=== PATIENT | female | born 1945 | race Caucasian/White ===

== ENCOUNTER 2020-01-23 14:53 | Outpatient (REF) | payer MEDICARE, SELFPAY ==
--- NOTE | 2020-01-23 14:58 | MM_ITS ---
EXAMINATION: MM SCREENING DIGITAL BREAST TOMOSYNTHESIS, BILATERAL CLINICAL INFORMATION: Screening. Asymptomatic. Family history of breast cancer (sister diagnosed at age 40). The lifetime risk of breast cancer based on the Tyrer-Cuzick Model is 5.7 %. COMPARISON: Mammography: 05/13/2018 and multiple previous mammograms dated back to 06/13/2013 TECHNIQUE: Digital breast tomosynthesis is performed in both the craniocaudal and mediolateral oblique views along with computer-aided detection (CAD). Synthesized 2D images are generated from the tomosynthesis. FINDINGS: There are scattered areas of fibroglandular density (ACR BI-RADS breast composition Category b). There are no significant masses, abnormal calcifications, or other abnormalities. No significant interval change is noted compared to last study. MM/MM tomosynthesis screening BI IMPRESSION: No mammographic evidence of malignancy. ASSESSMENT: BI-RADS 1: Negative RECOMMENDATION: Routine annual mammography screening. This patient's information was entered into a reminder system with a target due date for their next mammogram.
== END 2020-01-23 14:54 | disposition home or self-care (01) ==
LOC: HO.MAMMO 14:53
PROVIDERS: PCP Internal Medicine; Visit Provider Internal Medicine
DX: Z12.31 Encounter for screening mammogram for malignant neoplasm of breast (principal)
CPT/HCPCS: 77063; 77067

== ENCOUNTER 2020-06-08 10:27 | Outpatient (REF) | payer MEDICARE, SELFPAY ==
[2020-06-08 13:39] LABS: MANUAL DIFF FLAG NO
[2020-06-08 13:41] LABS: Basophils Percent Auto 0.6 % (0-2); Eosinophils Absolute Auto 0.1 X10*3/uL (0.0-0.4); Eosinophils Percent Auto 1.9 % (0-4); Hemoglobin 12.2 g/dl (12.0-16.0); Imm Gran Abs Auto 0.02 X10*3/uL (0.00-0.03); Imm Gran Pct Auto 0.3 % (0.0-0.4); Lymphocytes Absolute Auto 1.1 X10*3/uL (1.2-4.9); Lymphocytes Percent Auto 16.3 % (20-40); Mean Corpuscular HGB Conc 31.3 g/dl (31.0-35.0); Mean Corpuscular Hemoglobin 27.1 pg (27.0-33.0); Mean Corpuscular Volume 86.5 fL (80-98); Mean Platelet Volume 11.3 fL (9.4-12.3); Monocytes Absolute Auto 0.4 X10*3/uL (0.1-1.2); Neutrophils Absolute Auto 5.1 X10*3/uL (2.0-8.3); Neutrophils Percent Auto 74.9 % (45-73); Platelet Count 206 X10*3/uL (160-400); Red Blood Count 4.51 X10*6/uL (4.20-5.50); Red Cell Distribution Width 13.1 % (11.0-16.0); White Blood Count 6.8 X10*3/uL (4.8-10.8)
[2020-06-08 13:50] LABS: Estimated Average Glucose 123 mg/dL; Hemoglobin A1c % 5.9 %
[2020-06-08 14:08] LABS: Glucose Urine UA NEG (NEG); Leukocyte Esterase Urine NEG (NEG); Nitrite Urine NEG (NEG); Urine Blood TRACE (NEG); Urine Ketones NEG (NEG); Urine Protein NEG (NEG-TRACE)
[2020-06-08 14:17] LABS: Alanine Aminotransferase 17 U/L (0-31); Albumin Level 4.2 g/dL (3.5-5.0); Alkaline Phosphatase 85 U/L (39-117); Anion Gap 14 (12-20); Appearance Urine HAZY; Aspartate Amino Transferase 15 U/L (5-31); Bilirubin Total 0.6 mg/dL (0.0-1.0); Blood Urea Nitrogen 19 mg/dL (9-16); Calcium 8.8 mg/dL (8.4-10.2); Carbon Dioxide 30 mmol/L (22-29); Chloride 103 mmol/L (96-108); Cholesterol 168 mg/dL; Color Urine YELLOW; Estimated Glomerular Filt Rate > 60; Glucose Random 93 mg/dL (60-115); HDL Cholesterol 46 mg/dL; LDL Cholesterol Calculated 90 mg/dl; Potassium 4.7 mmol/L (3.3-5.1); Sodium 142 mmol/L (135-145); Total Protein 6.9 g/dL (6.5-8.0); Triglycerides 161 mg/dL
[2020-06-08 14:40] LABS: Free T4 (Free Thyroxine) 0.86 ng/dL (0.71-1.85); Thyroid Stimulating Hormone 3.24 uIU/mL (0.32-4.0); Vitamin D 25-OH Total 24.7 ng/mL (>30)
[2020-06-08 14:42] LABS: Bacteria Urine TRACE /LPF; Squamous Epithelial Cell Urine 3+ /LPF; WBC Urine 0-2 /HPF (0-4)
[2020-06-08 14:48] LABS: Folate 8.1 ng/mL (> or = 4.0); Vitamin B12 821 pg/mL (200-900)
== END 2020-06-08 10:28 | disposition home or self-care (01) ==
LOC: HO.10HDL 10:27
PROVIDERS: Visit Provider Internal Medicine
DX: E66.9 Obesity, unspecified (principal); E78.00 Pure hypercholesterolemia, unspecified; R61 Generalized hyperhidrosis
CPT/HCPCS: 36415; 80053; 80061; 81001; 82306; 82607; 82746; 83036; 84439; 84443; 85025

== ENCOUNTER 2021-09-12 14:23 | Outpatient (REF) | payer MEDICARE, SELFPAY ==
--- NOTE | ~2021-09-12 | MM_ITS ---
EXAMINATION: MM SCREENING DIGITAL BREAST TOMOSYNTHESIS, BILATERAL CLINICAL INFORMATION: Screening. Asymptomatic. The lifetime risk of breast cancer based on the Tyrer-Cuzick Model is 6%. COMPARISON: Mammography: January 23, 2020 and studies dating back to May 28, 2010 TECHNIQUE: Digital breast tomosynthesis is performed in both the craniocaudal and mediolateral oblique views along with computer-aided detection (CAD). Synthesized 2D images are generated from the tomosynthesis. FINDINGS: There are scattered areas of fibroglandular density (ACR BI-RADS breast composition Category b). There are no significant masses, abnormal calcifications, or other abnormalities. MM/MM tomosynthesis screening BI IMPRESSION: There are no significant changes from prior study. ASSESSMENT: BI-RADS 1: Negative RECOMMENDATION: Routine annual mammography screening. This patient's information was entered into a reminder system with a target due date for their next mammogram.
== END 2021-09-12 14:24 | disposition home or self-care (01) ==
LOC: HO.MAMMO 14:23
PROVIDERS: PCP Internal Medicine; Visit Provider Internal Medicine
DX: Z12.31 Encounter for screening mammogram for malignant neoplasm of breast (principal)
CPT/HCPCS: 77063; 77067

== ENCOUNTER 2022-04-22 11:13 | Outpatient (REF) | payer MEDICARE, SELFPAY ==
[2022-04-22 11:29] LABS: MANUAL DIFF FLAG NO
[2022-04-22 12:03] LABS: Basophils Percent Auto 0.4 % (0-2); Eosinophils Absolute Auto 0.1 X10*3/uL (0.0-0.4); Eosinophils Percent Auto 1.3 % (0-4); Hematocrit 39.5 % (37.0-47.0); Hemoglobin 12.2 g/dl (12.0-16.0); Imm Gran Abs Auto 0.05 X10*3/uL (0.00-0.03); Imm Gran Pct Auto 0.6 % (0.0-0.4); Lymphocytes Absolute Auto 1.3 X10*3/uL (1.2-4.9); Lymphocytes Percent Auto 14.3 % (20-40); Mean Corpuscular HGB Conc 30.9 g/dl (31.0-35.0); Mean Corpuscular Volume 80.9 fL (80.0-98.0); Mean Platelet Volume 10.6 fL (9.4-12.3); Monocytes Absolute Auto 0.5 X10*3/uL (0.1-1.2); Neutrophils Percent Auto 78.4 % (45-73); Platelet Count 176 X10*3/uL (160-400); Red Blood Count 4.88 X10*6/uL (4.20-5.50); Red Cell Distribution Width 14.2 % (11.0-16.0); White Blood Count 8.9 X10*3/uL (4.8-10.8)
[2022-04-22 12:39] LABS: Estimated Average Glucose 120 mg/dL; Hemoglobin A1c % 5.8 %
[2022-04-22 12:46] LABS: Alanine Aminotransferase 16 U/L (0-31); Albumin Level 4.3 g/dL (3.5-5.0); Alkaline Phosphatase 95 U/L (39-117); Anion Gap 14 (12-20); Aspartate Amino Transferase 18 U/L (5-31); Bilirubin Total 0.6 mg/dL (0.0-1.0); Blood Urea Nitrogen 15 mg/dL (9-16); Calcium 9.2 mg/dL (8.4-10.2); Carbon Dioxide 28 mmol/L (22-29); Chloride 107 mmol/L (96-108); Cholesterol 175 mg/dL; Estimated Glomerular Filt Rate > 60; Glucose Random 90 mg/dL (60-115); HDL Cholesterol 44 mg/dL; LDL Cholesterol Calculated 108 mg/dl; Potassium 4.7 mmol/L (3.3-5.1); Sodium 144 mmol/L (135-145); Total Protein 6.8 g/dL (6.5-8.0); Triglycerides 119 mg/dL
[2022-04-22 13:16] LABS: Folate 8.6 ng/mL (> or = 4.0); Free T4 (Free Thyroxine) 0.77 ng/dL (0.71-1.85); Thyroid Stimulating Hormone 2.58 uIU/mL (0.32-4.0); Vitamin B12 704 pg/mL (200-900); Vitamin D 25-OH Total 22.9 ng/mL (>30)
== END 2022-04-22 11:14 | disposition home or self-care (01) ==
LOC: HO.LAB 11:13
PROVIDERS: PCP Internal Medicine; Visit Provider Internal Medicine
DX: I10 Essential (primary) hypertension (principal); R73.02 Impaired glucose tolerance (oral); E78.00 Pure hypercholesterolemia, unspecified
CPT/HCPCS: 36415; 80053; 80061; 82306; 82607; 82746; 83036; 84439; 84443; 85025

== ENCOUNTER 2022-10-01 14:01 | Outpatient (REF) | payer MEDICARE, SELFPAY ==
--- NOTE | ~2022-10-01 | MM_ITS ---
EXAMINATION: MM SCREENING DIGITAL BREAST TOMOSYNTHESIS, BILATERAL CLINICAL INFORMATION: Screening. Asymptomatic. The lifetime risk of breast cancer based on the Tyrer-Cuzick Model is 5.3%. COMPARISON: Mammography: This study is compared with prior exams dating back to 2019. TECHNIQUE: Digital breast tomosynthesis is performed in both the craniocaudal and mediolateral oblique views along with computer-aided detection (CAD). Synthesized 2D images are generated from the tomosynthesis. FINDINGS: There are scattered areas of fibroglandular density (ACR BI-RADS breast composition Category b). There are no significant masses, abnormal calcifications, or other abnormalities. MM/MM tomosynthesis screening BI IMPRESSION: No mammographic evidence of malignancy. ASSESSMENT: BI-RADS BI-RADS 1 - Negative RECOMMENDATION: Routine annual mammography screening. 1 year F/U This examination should not preclude the clinical evaluation of a suspicious palpable abnormality. This patient's information was entered into a reminder system with a target due date for their next mammogram.
== END 2022-10-01 14:02 | disposition home or self-care (01) ==
LOC: HO.MAMMO 14:01
PROVIDERS: PCP Internal Medicine; Visit Provider Internal Medicine
DX: Z12.31 Encounter for screening mammogram for malignant neoplasm of breast (principal)
CPT/HCPCS: 77063; 77067

== ENCOUNTER → 2022-10-01 14:15 | Outpatient (BNV) | payer MEDICARE, SELFPAY | PROVIDERS: PCP Internal Medicine; Visit Provider Radiology Diagnostic Radiology | DX: Z12.31 Encounter for screening mammogram for malignant neoplasm of breast (principal) | CPT/HCPCS: 77063; 77067 ==

== ENCOUNTER 2022-10-29 08:18 | Outpatient (AMB) | payer MEDICARE, SELFPAY ==
[2022-10-29 08:24] VITALS: BP 162/82; PULSE 80; O2SAT 97; BMI 30.2
--- NOTE | 2022-10-29 08:24 | MHC.PC.OV ---
Vital Signs 10/29/22 08:24 Height 5 ft 6 in Weight 187 lb BMI 30.2 BP 162/82 H Blood Pressure Location Lt brachial Position Sitting Pulse 80 Pulse Source Pulse Oximeter Pulse Oximetry (%) 97 Oxygen Delivery Method Room Air Intake Visit Reasons: cholesterol, HTN, Rash under and on breast Allergies fish derived [fish] Allergy (Unknown, Verified 10/29/22 08:24) Anaphylaxis oxycodone [OXYCODONE] Allergy (Unknown, Verified 10/29/22 08:24) Nausea and Vomiting, upset stomache codeine [CODEINE] Adverse Reaction (Unknown, Verified 10/29/22 08:24) Nausea and Vomiting lactose [LACTOSE] Adverse Reaction (Unknown, Verified 10/29/22 08:24) Diarrhea dairy Allergy (Severe, Uncoded 10/29/22 08:24) Diarrhea Medication List - Last Reconciled 10/29/22 by Elaine Rodríguez MD aspirin (Adult Low Dose Aspirin) 81 mg PO DAILY atorvastatin 80 mg PO DAILY cholecalciferol (vitamin D3) 25 mcg PO DAILY cyanocobalamin (vitamin B-12) 1,000 mcg PO DAILY losartan 100 mg PO DAILY 30 days metoprolol succinate ER 50 mg PO DAILY 30 days omeprazole 20 mg PO DAILY Tobacco use date assessed: 05/01/22 Fall risk assessment: No Falls in past year Last assessed Fall Risk: 10/29/22 Dental Screening Dental Screen Date: 10/29/22 Did you have a dental visit in the last 12 months?: Yes Did you have a dental problem in the last 6 months where you did not have access to dental care?: No Was dental information given to patient?: Patient has dentist HPI cholesterol, HTN HPI Details 77-year-old obese female with impaired glucose tolerance hypercholesterolemia GERD and hypertension last seen in April 2022. Patient is here for follow-up. rash 1 week under brease and on the neck =- takes benedryl and not getting better [facility] Medical History (Updated 10/29/22 @ 08:51 by Elaine Rodríguez MD) Contact dermatitis Family history of breast cancer GERD (gastroesophageal reflux disease) Hypercholesterolemia Hypertension Medicare annual wellness visit, initial Night sweats Obesity (BMI 30-39.9) Overweight (BMI 25.0-29.9) TIA (transient ischemic attack) Varicose veins of both lower extremities Vitamin B12 deficiency Vitamin D deficiency Surgical History Closed right ankle fracture History of cataract surgery Family History (Updated 10/29/22 @ 08:25 by Lindsey Flores [facility]) Mother No problems noted. Father No problems noted. Social History Housing: House Alcohol intake: never Patient Tobacco Use Status: Never used Tobacco e-Cigarette/Vaping Use: Never Used Second Hand Smoke Exposure: No Current occupational status: retired Cognitive needs: No Hearing needs: No Vision needs: Yes Questionnaire PHQ-9 Over the last 2 weeks, how often have you been bothered by any of the following problems? 1. Little interest or pleasure in doing things: not at all 2. Feeling down, depressed, or hopeless: not at all 3. Trouble falling or staying asleep, or sleeping too much: not at all 4. Feeling tired or having little energy: not at all 5. Poor appetite or overeating: not at all 6. Feeling bad about yourself - or that you are a failure or have let yourself or your family down: not at all 7. Trouble concentrating on things, such as reading the newspaper or watching television: not at all 8. Moving or speaking so slowly that other people could have noticed. Or the opposite - being so fidgety or restless that you have been moving around a lot more than usual: not at all 9. Thoughts that you would be better off or of hurting yourself in some way: not at all Total score: 0 Depression Screening Interpretation: Negative Source: Developed by Drs. Christo Espinal, Eileen Edward, Murray Saul and colleagues, with an educational giselle from [employer]. Thrive Questionnaire Date Thrive assessed: 05/01/22 AUDIT C Alcohol Use Questionnaire (AUDIT-C) 1. How often do you have a drink containing alcohol?: Never 2. How many drinks containing alcohol do you have on a typical day when you are drinking?: 1 or 2 (none) 3. How often do you have six or more drinks on one occasion?: Never Total Score: 0 ALBERTINA-7 AMB Questionnaire ALBERTINA-7 Date ALBERTINA - 7 assessed: 05/01/22 Source: Developed by Drs. Christo Espinal, Eileen Edward, Murray Saul and colleagues, with an educational giselle from [employer]. Physical exam (Primary Care) Vital Signs: Oxygen Delivery Method Room Air 10/29/22 08:24 Tobacco/Smoking Status: Tobacco use Status Tobacco use date assessed 05/01/22 10/29/22 08:26 Patient Tobacco Use Status Never used Tobacco 10/29/22 08:26 e-Cigarette/Vaping Use Never Used 10/29/22 08:26 PHQ-9: PHQ-9 Score PHQ-9: Total score 0 10/29/22 08:26 Depression Screening Interpretation: Negative Thrive Assessment: Date of Thrive Assessment Date Thrive assessed 05/01/22 10/29/22 08:26 Const General: alert; No acute distress Eyes Conjunctivae: conjunctivae normal Resp Auscultation: clear to auscultation bilaterally Cardio Rate: regular rate Rhythm: regular rhythm GI Inspection: Yes normal to inspection Extrem General: Yes normal to inspection and No edema Assessment and Plan Assessment & Plan (1) Obesity (BMI 30-39.9): Code(s): E66.9 - Obesity, unspecified Plan: Diet and exercise (2) Hypertension: Code(s): I10 - Essential (primary) hypertension Qualifiers: Hypertension type: essential hypertension Qualified Code(s): I10 - Essential (primary) hypertension Plan: Continue with blood pressure medication. Decrease salt intake and exercise. Continue with losartan 100 mg once a day and metoprolol 50 mg once a day (3) GERD (gastroesophageal reflux disease): Comment: Gastritis and esophagitis Code(s): K21.9 - Gastro-esophageal reflux disease without esophagitis Qualifiers: Esophagitis presence: without esophagitis Qualified Code(s): K21.9 - Gastro-esophageal reflux disease without esophagitis Plan: Avoid the foods that causes that usually spicy foods, tomato products, juices, coffee, soda and foods that your sensitive to. After eating do not lie down, allow 3-4 hours before in lie down. And keep the head of bed above 30 degrees to avoid the acid from going up. On omeprazole 20 mg once a day (4) Hypercholesterolemia: Code(s): E78.00 - Pure hypercholesterolemia, unspecified Plan: Avoid fried foods, chicken skin, eggs, butter margarine, pastries and meat. Be it pork or beef they have a lot of cholesterol LDL goal of less than 130 and triglyceride less than 150 patient is on atorvastatin 80 mg once a day (5) Generalized anxiety disorder: Code(s): F41.1 - Generalized anxiety disorder (6) Impaired glucose tolerance: Code(s): R73.02 - Impaired glucose tolerance (oral) Plan: Decrease the amount of carbohydrate intake, pasta, bread, rice and potatoes are all sugar and that is aside from all the sweet stuff, remember that fruits are good but they are Sweet also. (7) Tinea corporis: Code(s): B35.4 - Tinea corporis Plan: cream antifungal done Orders: Orders Vitamin B12 and Folate 5 Months R73.02 - Impaired glucose tolerance (oral) Comprehensive Met. Panel 5 Months R73.02 - Impaired glucose tolerance (oral) Hemoglobin A1c 5 Months R73.02 - Impaired glucose tolerance (oral) Lipid Panel 5 Months E78.00 - Pure hypercholesterolemia, unspecified, R73.02 - Impaired glucose tolerance (oral) Free T4 (Free Thyroxine) 5 Months R73.02 - Impaired glucose tolerance (oral) Thyroid Stimulating Hormone 5 Months R73.02 - Impaired glucose tolerance (oral) Vitamin D 25-OH Total 5 Months R73.02 - Impaired glucose tolerance (oral) Complete Blood Count Auto Diff 5 Months R73.02 - Impaired glucose tolerance (oral) Medications: New clotrimazole 1% 1 appl topical BID 4 weeks 45 grams 0RF B35.4 - Tinea corporis Refilled omeprazole 20 mg PO DAILY 90 caps 3RF B35.4 - Tinea corporis Coding Level of Care Code Est Pt Level 4 (76287) Diagnoses Obesity (BMI 30-39.9) E66.9 Hypertension I10 Hypertension type: essential hypertension GERD (gastroesophageal reflux disease) K21.9 Esophagitis presence: without esophagitis Hypercholesterolemia E78.00 Generalized anxiety disorder F41.1 Impaired glucose tolerance R73.02 Tinea corporis B35.4
== END 2022-10-29 09:25 | disposition home or self-care (01) ==
PROVIDERS: PCP Internal Medicine; Visit Provider Internal Medicine
DX: I10 Essential (primary) hypertension (principal); K21.9 Gastro-esophageal reflux disease without esophagitis; E66.9 Obesity, unspecified; Z68.30 Body mass index [BMI] 30.0-30.9, adult; E78.00 Pure hypercholesterolemia, unspecified; F41.1 Generalized anxiety disorder; R73.02 Impaired glucose tolerance (oral); B35.4 Tinea corporis
CPT/HCPCS: 99214

== ENCOUNTER 2023-01-01 11:09 | Outpatient (REF) | payer MEDICARE, SELFPAY ==
[2023-01-01 11:21] LABS: MANUAL DIFF FLAG NO
[2023-01-01 11:54] LABS: Basophils Absolute Auto 0.1 X10*3/uL (0.0-0.2); Basophils Percent Auto 0.6 % (0-2); Eosinophils Absolute Auto 0.1 X10*3/uL (0.0-0.4); Eosinophils Percent Auto 1.1 % (0-4); Hematocrit 38.8 % (37.0-47.0); Hemoglobin 11.9 g/dl (12.0-16.0); Imm Gran Abs Auto 0.03 X10*3/uL (0.00-0.03); Imm Gran Pct Auto 0.3 % (0.0-0.4); Lymphocytes Absolute Auto 1.3 X10*3/uL (1.2-4.9); Lymphocytes Percent Auto 14.3 % (20-40); Mean Corpuscular HGB Conc 30.7 g/dl (31.0-35.0); Mean Corpuscular Hemoglobin 24.8 pg (27.0-33.0); Mean Corpuscular Volume 80.8 fL (80.0-98.0); Mean Platelet Volume 11.1 fL (9.4-12.3); Monocytes Absolute Auto 0.5 X10*3/uL (0.1-1.2); Monocytes Percent Auto 5.1 % (2-11); Neutrophils Absolute Auto 7.3 x10*3/uL (2.0-8.3); Neutrophils Percent Auto 78.6 % (45-73); Platelet Count 200 X10*3/uL (160-400); Red Cell Distribution Width 14.9 % (11.0-16.0); White Blood Count 9.3 X10*3/uL (4.8-10.8)
[2023-01-01 12:52] LABS: Estimated Average Glucose 123 mg/dL; Hemoglobin A1c % 5.9 % (<6.0)
[2023-01-01 13:27] LABS: Alanine Aminotransferase 14 U/L (0-31); Albumin Level 4.2 g/dL (3.5-5.0); Alkaline Phosphatase 82 U/L (39-117); Anion Gap 15 (12-20); Aspartate Amino Transferase 14 U/L (5-31); Bilirubin Total 0.4 mg/dL (0.0-1.0); Blood Urea Nitrogen 16 mg/dL (9-16); Calcium 9.4 mg/dL (8.4-10.2); Carbon Dioxide 26 mmol/L (22-29); Chloride 106 mmol/L (96-108); Cholesterol 167 mg/dL (<200); Estimated Glomerular Filt Rate > 60; Glucose Random 91 mg/dL (60-115); HDL Cholesterol 47 mg/dL (>40); LDL Cholesterol Calculated 85 mg/dL (<100); Potassium 4.7 mmol/L (3.3-5.1); Sodium 142 mmol/L (135-145); Total Protein 6.9 g/dL (6.5-8.0); Triglycerides 176 mg/dL (<150)
[2023-01-01 13:29] LABS: Thyroid Stimulating Hormone 3.88 uIU/mL (0.32-4.0); Vitamin D 25-OH Total 27.8 ng/mL (>30)
[2023-01-01 13:32] LABS: Folate 8.8 ng/mL (> or = 4.0); Vitamin B12 837 pg/mL (200-900)
== END 2023-01-01 11:10 | disposition home or self-care (01) ==
LOC: HO.LAB 11:09
PROVIDERS: PCP Internal Medicine; Visit Provider Internal Medicine
DX: R73.02 Impaired glucose tolerance (oral) (principal); E78.00 Pure hypercholesterolemia, unspecified; E55.9 Vitamin D deficiency, unspecified; Z78.0 Asymptomatic menopausal state
CPT/HCPCS: 36415; 80053; 80061; 82306; 82607; 82746; 83036; 84439; 84443; 85025

== ENCOUNTER 2023-01-05 13:19 | Outpatient (AMB) | payer MEDICARE, SELFPAY ==
[2023-01-05 13:20] VITALS: BP 136/70; PULSE 81; O2SAT 97; BMI 30.3
--- NOTE | 2023-01-05 13:20 | MHC.PC.OV ---
Vital Signs 01/05/23 13:20 Height 5 ft 6 in Weight 188 lb 0.6 oz BMI 30.3 BP 136/70 Blood Pressure Location Lt brachial Position Sitting Pulse 81 Pulse Source Pulse Oximeter Temp Source Skin Pulse Oximetry (%) 97 Oxygen Delivery Method Room Air Intake Visit Reasons: 2 mon f/u Manager Rn Required: No Allergies fish derived [fish] Allergy (Unknown, Verified 01/05/23 13:23) Anaphylaxis oxycodone [OXYCODONE] Allergy (Unknown, Verified 01/05/23 13:23) Nausea and Vomiting, upset stomache codeine [CODEINE] Adverse Reaction (Unknown, Verified 01/05/23 13:23) Nausea and Vomiting lactose [LACTOSE] Adverse Reaction (Unknown, Verified 01/05/23 13:23) Diarrhea dairy Allergy (Severe, Uncoded 01/05/23 13:23) Diarrhea Medication List - Last Reconciled 01/05/23 by Elaine Rodríguze MD aspirin (Adult Low Dose Aspirin) 81 mg PO DAILY atorvastatin 80 mg PO DAILY cholecalciferol (vitamin D3) 25 mcg PO DAILY clotrimazole 1% 1 appl topical BID 4 weeks cyanocobalamin (vitamin B-12) 1,000 mcg PO DAILY losartan 100 mg PO DAILY 30 days metoprolol succinate ER 50 mg PO DAILY 30 days omeprazole 20 mg PO DAILY Tobacco use date assessed: 01/05/23 Fall risk assessment: No Falls in past year Last assessed Fall Risk: 01/05/23 Dental Screening Did you have a dental visit in the last 12 months?: No Did you have a dental problem in the last 6 months where you did not have access to dental care?: No HPI 2 mon f/u HPI Details 78-year-old obese female with hypertension GERD hypercholesterolemia impaired glucose tolerance and generalized anxiety disorder last seen in October 2022. Patient is here for follow-up mammogram is up-to-date refused colonoscopy FORMERLY [facility] Medical History (Updated 10/29/22 @ 08:51 by Elaine oRdríguez MD) Overweight (BMI 25.0-29.9) Medicare annual wellness visit, initial Contact dermatitis Night sweats Varicose veins of both lower extremities Hypertension Obesity (BMI 30-39.9) TIA (transient ischemic attack) GERD (gastroesophageal reflux disease) Vitamin D deficiency Hypercholesterolemia Vitamin B12 deficiency Family history of breast cancer Surgical History History of cataract surgery Closed right ankle fracture Family History (Updated 10/29/22 @ 08:25 by Lindsey Flores [facility] [address]) Mother No problems noted. Father No problems noted. Social History Housing: House Alcohol intake: never Patient Tobacco Use Status: Never used Tobacco e-Cigarette/Vaping Use: Never Used Second Hand Smoke Exposure: No Current occupational status: retired Cognitive needs: No Hearing needs: No Vision needs: Yes Questionnaire Thrive Questionnaire Date Thrive assessed: 05/01/22 AUDIT C Alcohol Use Questionnaire (AUDIT-C) 1. How often do you have a drink containing alcohol?: Never 2. How many drinks containing alcohol do you have on a typical day when you are drinking?: 1 or 2 (none) 3. How often do you have six or more drinks on one occasion?: Never Total Score: 0 ALBERTINA-7 AMB Questionnaire ALBERTINA-7 Date ALBERTINA - 7 assessed: 05/01/22 Source: Developed by Drs. Christo Espinal, Eileen Edward, Murray Saul and colleagues, with an educational giselle from [employer]. Physical exam (Primary Care) Vital Signs: Last Vital Signs Pulse 81 01/05/23 13:20 BP 136/70 01/05/23 13:20 Pulse Ox 97 01/05/23 13:20 Oxygen Delivery Method Room Air 01/05/23 13:20 BMI result Body Mass Index 30.3 Tobacco/Smoking Status: Tobacco use Status Tobacco use date assessed 01/05/23 01/05/23 13:21 Patient Tobacco Use Status Never used Tobacco 01/05/23 13:21 e-Cigarette/Vaping Use Never Used 01/05/23 13:21 Thrive Assessment: Date of Thrive Assessment Date Thrive assessed 05/01/22 01/05/23 13:21 Const General: alert; No acute distress Eyes Conjunctivae: conjunctivae normal Resp Auscultation: clear to auscultation bilaterally Cardio Rate: regular rate Rhythm: regular rhythm GI Inspection: Yes normal to inspection Extrem General: Yes normal to inspection and No edema Office Procedures Flu Questionnaire Does the patient have a severe egg allergy?: No Does the patient have severe life threatening allergies?: No Does the patient have a fever or illness today?: No Has the patient ever had Guillain-Locust Syndrome?: No Has the patient ever had any past reaction to a flu shot?: No Immunizations flu vacc [id number] 6mos up(PF) 60 mcg(15 mcgx4)/0.5 mL IM syringe Performing Provider: Elaine Rodríguez MD Performing Location: [facility] Administered by: GUANAKO Denton on 01/05/23 13:37 Dose Route Admin Location Dispensed Lot Number Expiration Date NDC [employer] 0.5 mL IM Left Deltoid 0.5 mL [id number] 09/20/23 [id number] [employer] VIS Given Date VIS Provided VIS Publication Date 01/05/23 Single Vaccine 20 Eligibility Eligibility Date Funding Source Not [facility] Eligible 01/05/23 Private Assessment and Plan Assessment & Plan (1) Obesity (BMI 30-39.9): Code(s): E66.9 - Obesity, unspecified Plan: Diet and exercise (2) Impaired glucose tolerance: Code(s): R73.02 - Impaired glucose tolerance (oral) Plan: Decrease the amount of carbohydrate intake, pasta, bread, rice and potatoes are all sugar and that is aside from all the sweet stuff, remember that fruits are good but they are Sweet also. (3) GERD (gastroesophageal reflux disease): Comment: Gastritis and esophagitis Code(s): K21.9 - Gastro-esophageal reflux disease without esophagitis Qualifiers: Esophagitis presence: without esophagitis Qualified Code(s): K21.9 - Gastro-esophageal reflux disease without esophagitis Plan: Avoid the foods that causes that usually spicy foods, tomato products, juices, coffee, soda and foods that your sensitive to. After eating do not lie down, allow 3-4 hours before in lie down. And keep the head of bed above 30 degrees to avoid the acid from going up. (4) Hypertension: Code(s): I10 - Essential (primary) hypertension Qualifiers: Hypertension type: essential hypertension Qualified Code(s): I10 - Essential (primary) hypertension Plan: Continue with blood pressure medication. Decrease salt intake and exercise patient is taking losartan 100 mg once a day metoprolol 50 mg once a day (5) Hypercholesterolemia: Code(s): E78.00 - Pure hypercholesterolemia, unspecified Plan: Avoid fried foods, chicken skin, eggs, butter margarine, pastries and meat. Be it pork or beef they have a lot of cholesterol LDL goal of less than 130 and triglyceride of less than 150 patient is on atorvastatin 80 mg once a day (6) Generalized anxiety disorder: Code(s): F41.1 - Generalized anxiety disorder Plan: Stable Orders: Orders Influenza [id number] Immunization Today Z23 - Encounter for immunization Lipid Panel 6 Months E78.00 - Pure hypercholesterolemia, unspecified Thyroid Stimulating Hormone 6 Months E78.00 - Pure hypercholesterolemia, unspecified Free T4 (Free Thyroxine) 6 Months E78.00 - Pure hypercholesterolemia, unspecified Vitamin B12 and Folate 6 Months E78.00 - Pure hypercholesterolemia, unspecified Hemoglobin A1c 6 Months R73.02 - Impaired glucose tolerance (oral) Comprehensive Met. Panel 6 Months R73.02 - Impaired glucose tolerance (oral) Ferritin 6 Months R73.02 - Impaired glucose tolerance (oral) Vitamin D 25-OH Total 6 Months E78.00 - Pure hypercholesterolemia, unspecified Complete Blood Count Auto Diff 6 Months R73.02 - Impaired glucose tolerance (oral) IRON PROFILE 6 Months R73.02 - Impaired glucose tolerance (oral) Reticulocyte Count 6 Months R73.02 - Impaired glucose tolerance (oral) Coding Level of Care Code Est Pt Level 4 (07989) Diagnoses Obesity (BMI 30-39.9) E66.9 Impaired glucose tolerance R73.02 Gastroesophageal reflux disease without esophagitis K21.9 Esophagitis presence: without esophagitis Essential hypertension I10 Hypertension type: essential hypertension Hypercholesterolemia E78.00 Generalized anxiety disorder F41.1
== END 2023-01-05 14:03 | disposition home or self-care (01) ==
PROVIDERS: PCP Internal Medicine; Visit Provider Internal Medicine
DX: Z23 Encounter for immunization (principal)
CPT/HCPCS: 90471; 90686; 99214

== ENCOUNTER 2023-07-08 12:53 | Outpatient (AMB) | payer MEDICARE, SELFPAY ==
[2023-07-08 12:56] VITALS: BP 136/74; PULSE 78; O2SAT 95; BMI 31.0
--- NOTE | 2023-07-08 12:56 | A.OFFPC_ITS ---
Vital Signs 07/08/23 12:56 Height 5 ft 6 in Weight 192 lb BMI 31.0 BP 136/74 Blood Pressure Location Lt brachial Position Sitting Pulse 78 Pulse Source Pulse Oximeter Pulse Oximetry (%) 95 Oxygen Delivery Method Room Air Intake Visit Reasons: cholesterol , HTN Intake Note: Needs refill for omeprazole Allergies fish derived [fish] Allergy (Unknown, Verified 07/08/23 12:57) Anaphylaxis oxycodone [OXYCODONE] Allergy (Unknown, Verified 07/08/23 12:57) Nausea and Vomiting, upset stomache codeine [CODEINE] Adverse Reaction (Unknown, Verified 07/08/23 12:57) Nausea and Vomiting lactose [LACTOSE] Adverse Reaction (Unknown, Verified 07/08/23 12:57) Diarrhea dairy Allergy (Severe, Uncoded 07/08/23 12:57) Diarrhea Tobacco use date assessed: 07/08/23 Fall risk assessment: No Falls in past year Last assessed Fall Risk: 07/08/23 Dental Screening Dental Screen Date: 07/08/23 Did you have a dental visit in the last 12 months?: Yes Did you have a dental problem in the last 6 months where you did not have access to dental care?: No Was dental information given to patient?: Patient has dentist HPI cholesterol , HTN HPI Details 78-year-old obese female with impaired g lucose tolerance GERD hypertension hypercholesterolemia generalized anxiety disorder last seen in December 2022. Mammogram is up-to-date declined colonoscopy. [facility] Medical History (Updated 10/29/22 @ 08:51 by Elaine Rodríguez MD) Overweight (BMI 25.0-29.9) Medicare annual wellness visit, initial Contact dermatitis Night sweats Varicose veins of both lower extremities Hypertension Obesity (BMI 30-39.9) TIA (transient ischemic attack) GERD (gastroesophageal reflux disease) Vitamin D deficiency Hypercholesterolemia Vitamin B12 deficiency Family history of breast cancer Surgical History History of cataract surgery Closed right ankle fracture Family History (Updated 10/29/22 @ 08:25 by Lindsey Flores CMA) Mother No problems noted. Father No problems noted. Social History Housing: House Alcohol intake: never Patient Tobacco Use Status: Never used Tobacco e-Cigarette/Vaping Use: Never Used Second Hand Smoke Exposure: No Current occupational status: retired Cognitive needs: No Hearing needs: No Vision needs: Yes Questionnaire PHQ-9 Over the last 2 weeks, how often have you been bothered by any of the following problems? 1. Little interest or pleasure in doing things: not at all 2. Feeling down, depressed, or hopeless: not at all 3. Trouble falling or staying asleep, or sleeping too much: not at all 4. Feeling tired or having little energy: not at all 5. Poor appetite or overeating: not at all 6. Feeling bad about yourself - or that you are a failure or have let yourself or your family down: not at all 7. Trouble concentrating on things, such as reading the newspaper or watching television: not at all 8. Moving or speaking so slowly that other people could have noticed. Or the opposite - being so fidgety or restless that you have been moving around a lot more than usual: not at all 9. Thoughts that you would be better off or of hurting yourself in some way: not at all Total score: 0 Depression Screening Interpretation: Negative Depression Screening Done: Yes Source: Developed by Drs. Christo Espinal, Eileen Edward, Murray Saul and colleagues, with an educational giselle from [employer]. Thrive Questionnaire Date Thrive assessed: 07/08/23 I am a: Patient What is your living situation today?: I have a steady place to live Within the past 12 months, did the food you bought not last and you didn't have the money to get more?: Never true Within the past 12 months, did you worry whether your food would run out before you got money to buy more?: Never true Do you have trouble paying for medicines?: No Do you have trouble getting transportation to medical appointments?: No Do you have trouble paying your heating and electricity bill?: No Do you have trouble taking care of your child, family member or friend?: No Do you have trouble with day-to-day activities such as bathing, preparing meals, shopping, managing finances, etc.?: No Are you currently unemployed and looking for a job?: No Are you interested in more education?: No Currently or been in a relationship where the following occur: no concerns reported THRIVE Score: 0 AUDIT C Alcohol Use Questionnaire (AUDIT-C) 1. How often do you have a drink containing alcohol?: Never 2. How many drinks containing alcohol do you have on a typical day when you are drinking?: 1 or 2 (none) 3. How often do you have six or more drinks on one occasion?: Never Total Score: 0 ALBERTINA-7 AMB Questionnaire ALBERTINA-7 Date ALBERTINA - 7 assessed: 07/08/23 Feeling nervous, anxious, or on edge: 0 = Not at all Not being able to stop or control worryin = Not at all Worrying too much about different things: 0 = Not at all Trouble relaxin = Not at all Being so restless that it is hard to sit still: 0 = Not at all Becoming easily annoyed or irritable: 0 = Not at all Feeling afraid as if something awful might happen: 0 = Not at all Total ALBERTINA-7 score (0-4 normal; 5-9 mild; 10-14 moderate; 15-21 severe): 0 Source: Developed by Drs. Christo Espinal, Eileen Edward, Murray Saul and colleagues, with an educational giselle from [employer]. Physical exam (Primary Care) Vital Signs: Last Vital Signs Pulse 78 07/08/23 12:56 BP 136/74 07/08/23 12:56 Pulse Ox 95 07/08/23 12:56 Oxygen Delivery Method Room Air 07/08/23 12:56 BMI result Body Mass Index 31.0 Tobacco/Smoking Status: Tobacco use Status Tobacco use date assessed 07/08/23 07/08/23 13:04 Patient Tobacco Use Status Never used Tobacco 07/08/23 13:04 e-Cigarette/Vaping Use Never Used 07/08/23 13:04 PHQ-9: PHQ-9 Score PHQ-9: Total score 0 07/08/23 13:04 Depression Screening Interpretation: Negative Thrive Assessment: Date of Thrive Assessment Date Thrive assessed 07/08/23 07/08/23 13:04 Currently or been in a relationship where the following occur: no concerns reported Const General: alert; No acute distress Eyes Conjunctivae: conjunctivae normal Resp Auscultation: clear to auscultation bilaterally Cardio Rate: regular rate Rhythm: regular rhythm GI Inspection: Yes normal to inspection Extrem General: Yes normal to inspection and No edema Assessment and Plan Assessment & Plan (1) Impaired glucose tolerance: Code(s): R73.02 - Impaired glucose tolerance (oral) Plan: Decrease the amount of carbohydrate intake, pasta, bread, rice and potatoes are all sugar and that is aside from all the sweet stuff, remember that fruits are good but they are Sweet also. (2) Hypertension: Code(s): I10 - Essential (primary) hypertension Qualifiers: Hypertension type: essential hypertension Qualified Code(s): I10 - Essential (primary) hypertension Plan: Continue with blood pressure medication. Decrease salt intake and exercise presently on losartan 100 mg once a day metoprolol 50 mg once a day (3) Obesity (BMI 30-39.9): Code(s): E66.9 - Obesity, unspecified Plan: Diet and exercise (4) GERD (gastroesophageal reflux disease): Comment: Gastritis and esophagitis Code(s): K21.9 - Gastro-esophageal reflux disease without esophagitis Qualifiers: Esophagitis presence: without esophagitis Qualified Code(s): K21.9 - Gastro-esophageal reflux disease without esophagitis Plan: Avoid the foods that causes that usually spicy foods, tomato products, juices, coffee, soda and foods that your sensitive to. After eating do not lie down, allow 3-4 hours before in lie down. And keep the head of bed above 30 degrees to avoid the acid from going up. (5) Hypercholesterolemia: Code(s): E78.00 - Pure hypercholesterolemia, unspecified Plan: Avoid fried foods, chicken skin, eggs, butter margarine, pastries and meat. Be it pork or beef they have a lot of cholesterol LDL goal of less than 130 and triglyceride of less than 150. Blood work done December 2022 (6) Generalized anxiety disorder: Code(s): F41.1 - Generalized anxiety disorder Plan: Stable Medications: Refilled omeprazole 20 mg PO DAILY 90 caps 3RF B35.4 - Tinea corporis Coding Level of Care Code Est Pt Level 4 (12090) Diagnoses Impaired glucose tolerance R73.02 Essential hypertension I10 Hypertension type: essential hypertension Obesity (BMI 30-39.9) E66.9 Gastroesophageal reflux disease without esophagitis K21.9 Esophagitis presence: without esophagitis Hypercholesterolemia E78.00 Generalized anxiety disorder F41.1
== END 2023-07-08 13:43 | disposition home or self-care (01) ==
PROVIDERS: PCP Internal Medicine; Visit Provider Internal Medicine
DX: R73.02 Impaired glucose tolerance (oral) (principal); I10 Essential (primary) hypertension; E66.9 Obesity, unspecified; Z68.30 Body mass index [BMI] 30.0-30.9, adult; K21.9 Gastro-esophageal reflux disease without esophagitis; E78.00 Pure hypercholesterolemia, unspecified; F41.1 Generalized anxiety disorder
CPT/HCPCS: 99214

== ENCOUNTER 2023-07-11 09:32 | Outpatient (REF) | payer MEDICARE, SELFPAY ==
[2023-07-11 09:43] LABS: MANUAL DIFF FLAG NO
[2023-07-11 10:07] LABS: Basophils Percent Auto 0.4 % (0-2); Eosinophils Absolute Auto 0.1 X10*3/uL (0.0-0.4); Eosinophils Percent Auto 1.3 % (0-4); Hematocrit 38.9 % (37.0-47.0); Hemoglobin 12.1 g/dl (12.0-16.0); Imm Gran Abs Auto 0.04 X10*3/uL (0.00-0.03); Imm Gran Pct Auto 0.4 % (0.0-0.4); Immature Retic Fraction 11.1 % (3.0-15.9); Lymphocytes Absolute Auto 1.4 X10*3/uL (1.2-4.9); Lymphocytes Percent Auto 14.2 % (20-40); Mean Corpuscular HGB Conc 31.1 g/dl (31.0-35.0); Mean Corpuscular Hemoglobin 25.3 pg (27.0-33.0); Mean Corpuscular Volume 81.2 fL (80.0-98.0); Mean Platelet Volume 10.6 fL (9.4-12.3); Monocytes Absolute Auto 0.5 X10*3/uL (0.1-1.2); Monocytes Percent Auto 4.8 % (2-11); Neutrophils Absolute Auto 7.6 x10*3/uL (2.0-8.3); Neutrophils Percent Auto 78.9 % (45-73); Platelet Count 174 X10*3/uL (160-400); Red Blood Count 4.79 X10*6/uL (4.20-5.50); Red Cell Distribution Width 14.7 % (11.0-16.0); Retic HGB Equivalent 29.4 pg (30.0-35.0); Reticulocyte Percent 1.5 % (0.5-1.8); White Blood Count 9.7 X10*3/uL (4.8-10.8)
[2023-07-11 10:27] LABS: Estimated Average Glucose 131 mg/dL; Hemoglobin A1c % 6.2 % (<6.0)
[2023-07-11 11:18] LABS: Alanine Aminotransferase 21 U/L (0-31); Albumin Level 4.2 g/dL (3.5-5.0); Alkaline Phosphatase 82 U/L (39-117); Anion Gap 11 (12-20); Aspartate Amino Transferase 23 U/L (5-31); Bilirubin Total 0.4 mg/dL (0.0-1.0); Blood Urea Nitrogen 17 mg/dL (9-16); Carbon Dioxide 26 mmol/L (22-29); Chloride 109 mmol/L (96-108); Cholesterol 158 mg/dL (<200); Estimated Glomerular Filt Rate > 60; Ferritin 7 ng/mL (10-250); Free T4 (Free Thyroxine) 0.79 ng/dL (0.71-1.85); Glucose Random 102 mg/dL (60-115); HDL Cholesterol 44 mg/dL (>40); Iron 41 mcg/dL (30-160); LDL Cholesterol Calculated 86 mg/dL (<100); Percent Iron Saturation 11 % (15-50); Potassium 4.3 mmol/L (3.3-5.1); Sodium 142 mmol/L (135-145); Total Iron Binding Capacity 357 mcg/dL (228-428); Triglycerides 144 mg/dL (<150); Unsaturated Iron Binding 316 ug/dL
[2023-07-12 00:35] LABS: Folate 4.7 ng/mL (> or = 4.0); Vitamin B12 865 pg/mL (200-900)
== END 2023-07-11 09:33 | disposition home or self-care (01) ==
LOC: HO.LAB 09:32
PROVIDERS: PCP Internal Medicine; Visit Provider Internal Medicine
DX: E78.00 Pure hypercholesterolemia, unspecified (principal); R73.02 Impaired glucose tolerance (oral)
CPT/HCPCS: 36415; 80053; 80061; 82306; 82607; 82728; 82746; 83036; 83540; 84439; 84443; 85025; 85045

== ENCOUNTER 2024-01-12 12:57 | Outpatient (AMB) | payer MEDICARE, SELFPAY ==
[2024-01-12 13:02] VITALS: BP 148/72; PULSE 82; O2SAT 98
--- NOTE | 2024-01-12 13:02 | A.OFFPC_ITS ---
Vital Signs 01/12/24 13:02 01/12/24 13:18 Height 5 ft 6 in Weight 186 lb BMI 30.0 BP 148/72 H 140/70 H Blood Pressure Location Lt brachial Lt brachial Position Sitting Sitting Pulse 82 Pulse Source Pulse Oximeter Pulse Oximetry (%) 98 Oxygen Delivery Method Room Air Intake Visit Reasons: [id number] Clinical Laboratory Service Teacher Required: No Allergies fish derived [fish] Allergy (Unknown, Verified 01/12/24 13:02) Anaphylaxis oxycodone [OXYCODONE] Allergy (Unknown, Verified 01/12/24 13:02) Nausea and Vomiting, upset stomache codeine [CODEINE] Adverse Reaction (Unknown, Verified 01/12/24 13:02) Nausea and Vomiting lactose [LACTOSE] Adverse Reaction (Unknown, Verified 01/12/24 13:02) Diarrhea dairy Allergy (Severe, Uncoded 01/12/24 13:02) Diarrhea Tobacco use date assessed: 07/08/23 Fall risk assessment: No Falls in past year Last assessed Fall Risk: 01/12/24 Dental Screening Dental Screen Date: 07/08/23 HPI [id number] HPI Details 79-year-old obese female with a history of hypertension GERD impaired glucose tolerance hypercholesterolemia and generalized anxiety disorder. Last seen in June 2023. Since that time in September 2023. Patient is bone density is due mammogram is due has refused colonoscopy. Patient is here for follow-up. mammo scheduled, decline bone density. colon test declined [facility] Medical History (Updated 10/29/22 @ 08:51 by Elaine Rodríguez MD) Overweight (BMI 25.0-29.9) Medicare annual wellness visit, initial Contact dermatitis Night sweats Varicose veins of both lower extremities Hypertension Obesity (BMI 30-39.9) TIA (transient ischemic attack) GERD (gastroesophageal reflux disease) Vitamin D deficiency Hypercholesterolemia Vitamin B12 deficiency Family history of breast cancer Surgical History History of cataract surgery Closed right ankle fracture Family History (Updated 10/29/22 @ 08:25 by Lindsey Flores CMA) Mother No problems noted. Father No problems noted. Social History Housing: House Alcohol intake: never Patient Tobacco Use Status: Never used Tobacco e-Cigarette/Vaping Use: Never Used Second Hand Smoke Exposure: No Current occupational status: retired Cognitive needs: No Hearing needs: No Vision needs: Yes Questionnaire Thrive Questionnaire Date Thrive assessed: 07/08/23 AUDIT C Alcohol Use Questionnaire (AUDIT-C) 1. How often do you have a drink containing alcohol?: Never 2. How many drinks containing alcohol do you have on a typical day when you are drinking?: 1 or 2 (none) 3. How often do you have six or more drinks on one occasion?: Never Total Score: 0 ALBERTINA-7 AMB Questionnaire ALBERTINA-7 Date ALBERTINA - 7 assessed: 07/08/23 Source: Developed by Drs. Christo Espinal, Eileen Edward, Murray Saul and colleagues, with an educational giselle from [employer]. Physical exam (Primary Care) Vital Signs: Last Vital Signs Pulse 82 01/12/24 13:02 BP 140/70 H 01/12/24 13:18 Pulse Ox 98 01/12/24 13:02 Oxygen Delivery Method Room Air 01/12/24 13:02 BMI result Body Mass Index 30.0 Tobacco/Smoking Status: Tobacco use Status Tobacco use date assessed 07/08/23 01/12/24 13:08 Patient Tobacco Use Status Never used Tobacco 01/12/24 13:08 e-Cigarette/Vaping Use Never Used 01/12/24 13:08 Thrive Assessment: Date of Thrive Assessment Date Thrive assessed 07/08/23 01/12/24 13:08 Const General: alert; No acute distress Eyes Conjunctivae: conjunctivae normal Resp Auscultation: clear to auscultation bilaterally Cardio Rate: regular rate Rhythm: regular rhythm GI Inspection: Yes normal to inspection Extrem General: Yes normal to inspection and No edema Immunizations tetanus-diphtheria toxoids-Td 2 Lf unit-2 Lf unit/0.5 mL IM suspension Performing Provider: Elaine Rodríguez MD [facility] Administered by: LESLIE Maddox on 01/12/24 13:34 Dose Route Admin Location Dispensed Lot Number Expiration Date [facility] Cardiopulmonary Technician And Eeg Tech 0.5 mL IM Left Deltoid 0.5 mL [id number] 05/02/24 [address]-0 [employer] VIS Given Date VIS Provided VIS Publication Date 01/12/24 Single Vaccine 20 Eligibility Eligibility Date Funding Source Not [facility] Eligible 01/12/24 State funds Coding Level of Care Code Est Pt Level 4 (38738) Diagnoses Hypercholesterolemia E78.00 Gastroesophageal reflux disease without esophagitis K21.9 Esophagitis presence: without esophagitis Obesity (BMI 30-39.9) E66.9 Essential hypertension I10 Hypertension type: essential hypertension Generalized anxiety disorder F41.1 Impaired glucose tolerance R73.02 Assessment & Plan Assessment & Plan (1) Hypercholesterolemia: Code(s): E78.00 - Pure hypercholesterolemia, unspecified Category: Medical Plan: Avoid fried foods, chicken skin, eggs, butter margarine, pastries and meat. Be it pork or beef they have a lot of cholesterol LDL goal of less than 130 and triglyceride of less than 150 on atorvastatin 80 mg once a day last blood work was in June 2023 (2) GERD (gastroesophageal reflux disease): Comment: Gastritis and esophagitis Code(s): K21.9 - Gastro-esophageal reflux disease without esophagitis Category: Medical Qualifiers: Esophagitis presence: without esophagitis Qualified Code(s): K21.9 - Gastro-esophageal reflux disease without esophagitis Plan: Avoid the foods that causes that usually spicy foods, tomato products, juices, coffee, soda and foods that your sensitive to. After eating do not lie down, allow 3-4 hours before in lie down. And keep the head of bed above 30 degrees to avoid the acid from going up. On omeprazole (3) Obesity (BMI 30-39.9): Code(s): E66.9 - Obesity, unspecified Category: Medical Plan: Diet and exercise (4) Hypertension: Code(s): I10 - Essential (primary) hypertension Category: Medical Qualifiers: Hypertension type: essential hypertension Qualified Code(s): I10 - Essential (primary) hypertension Plan: Continue with blood pressure medication. Decrease salt intake and exercise patient takes metoprolol 50 mg once a day losartan 100 mg once a day. continue to monitor BP and ff up (5) Generalized anxiety disorder: Code(s): F41.1 - Generalized anxiety disorder Category: Medical Plan: Discussion about counseling and therapy. but declined (6) Impaired glucose tolerance: Code(s): R73.02 - Impaired glucose tolerance (oral) Category: Medical Plan: Decrease the amount of carbohydrate intake, pasta, bread, rice and potatoes are all sugar and that is aside from all the sweet stuff, remember that fruits are good but they are Sweet also. Orders: Orders Hemoglobin A1c Today R73.02 - Impaired glucose tolerance (oral) Complete Blood Count Auto Diff Today R73.02 - Impaired glucose tolerance (oral) Thyroid Stimulating Hormone Today R73.02 - Impaired glucose tolerance (oral) Free T4 (Free Thyroxine) Today R73.02 - Impaired glucose tolerance (oral) Lipid Panel Today E78.00 - Pure hypercholesterolemia, unspecified, R73.02 - Impaired glucose tolerance (oral) Td State Immunization Today Z23 - Encounter for immunization Comprehensive Met. Panel Today R73.02 - Impaired glucose tolerance (oral) Vitamin B12 and Folate Today R73.02 - Impaired glucose tolerance (oral)
[2024-01-12 13:18] VITALS: BP 140/70
== END 2024-01-12 13:34 | disposition home or self-care (01) ==
PROVIDERS: PCP Internal Medicine; Visit Provider Internal Medicine
DX: E78.00 Pure hypercholesterolemia, unspecified (principal); K21.9 Gastro-esophageal reflux disease without esophagitis; E66.9 Obesity, unspecified; Z68.30 Body mass index [BMI] 30.0-30.9, adult; I10 Essential (primary) hypertension; F41.1 Generalized anxiety disorder; R73.02 Impaired glucose tolerance (oral); Z23 Encounter for immunization

== ENCOUNTER → 2024-01-12 12:57 | Outpatient (BNVA) | payer MEDICARE, SELFPAY | PROVIDERS: PCP Internal Medicine; Visit Provider Internal Medicine | DX: E78.00 Pure hypercholesterolemia, unspecified (principal); K21.9 Gastro-esophageal reflux disease without esophagitis; E66.9 Obesity, unspecified; Z68.30 Body mass index [BMI] 30.0-30.9, adult; I10 Essential (primary) hypertension; F41.1 Generalized anxiety disorder; R73.02 Impaired glucose tolerance (oral); Z79.899 Other long term (current) drug therapy; Z23 Encounter for immunization | CPT/HCPCS: 90471; 90714; 99212 ==

== ENCOUNTER 2024-01-18 12:16 | Outpatient (REF) | payer MEDICARE, SELFPAY ==
--- NOTE | ~2024-01-18 | MM_ITS ---
EXAMINATION: MM SCREENING DIGITAL BREAST TOMOSYNTHESIS, BILATERAL CLINICAL INFORMATION: Screening. Asymptomatic. COMPARISON: Mammography: Comparison is made with available priors TECHNIQUE: Digital breast mammography with tomosynthesis is performed in both the craniocaudal and mediolateral oblique views along with computer-aided detection (CAD). FINDINGS: There are scattered areas of fibroglandular density (ACR BI-RADS breast composition Category b). There are no significant masses, abnormal calcifications, or other abnormalities. MM/MM tomosynthesis screening BI IMPRESSION: No mammographic evidence of malignancy. ASSESSMENT: BI-RADS BI-RADS 1 - Negative RECOMMENDATION: Routine annual mammography screening. 1 year F/U This examination should not preclude the clinical evaluation of a suspicious palpable abnormality. This patient's information was entered into a reminder system with a target due date for their next mammogram. Electronically signed by: Freida Guillory DO 01/26/2024 03:09 PM JERALD
== END 2024-01-18 12:17 | disposition home or self-care (01) ==
LOC: HO.MAMMO 12:16
PROVIDERS: PCP Internal Medicine; Visit Provider Internal Medicine
DX: Z12.31 Encounter for screening mammogram for malignant neoplasm of breast (principal)
CPT/HCPCS: 77063; 77067

== ENCOUNTER → 2024-01-18 12:30 | Outpatient (BNV) | payer MEDICARE, SELFPAY | PROVIDERS: PCP Internal Medicine; Visit Provider Internal Medicine | DX: Z12.31 Encounter for screening mammogram for malignant neoplasm of breast (principal) | CPT/HCPCS: 77063; 77067 ==

== ENCOUNTER 2024-03-07 11:16 | Outpatient (REF) | payer MEDICARE, SELFPAY ==
[2024-03-07 12:55] LABS: Estimated Average Glucose 120 mg/dL; Hemoglobin A1C 123.5297 umol/L; Hemoglobin A1c % 5.8 % (<6.0); Total Hemoglobin (HGBA1C) 3066.6057 umol/L
[2024-03-07 13:16] LABS: Basophils Percent Auto 0.5 % (0-2); Eosinophils Absolute Auto 0.1 X10*3/uL (0.0-0.4); Eosinophils Percent Auto 1.2 % (0-4); Hematocrit 38.5 % (37.0-47.0); Hemoglobin 12.2 g/dl (12.0-16.0); Imm Gran Abs Auto 0.03 X10*3/uL (0.00-0.03); Imm Gran Pct Auto 0.4 % (0.0-0.4); Lymphocytes Absolute Auto 1.1 X10*3/uL (1.2-4.9); Lymphocytes Percent Auto 12.7 % (20-40); MANUAL DIFF FLAG SCAN; Mean Corpuscular HGB Conc 31.7 g/dl (31.0-35.0); Mean Corpuscular Hemoglobin 25.9 pg (27.0-33.0); Mean Corpuscular Volume 81.7 fL (80.0-98.0); Mean Platelet Volume 11.6 fL (9.4-12.3); Monocytes Absolute Auto 0.4 X10*3/uL (0.1-1.2); Monocytes Percent Auto 4.6 % (2-11); Neutrophils Absolute Auto 6.8 x10*3/uL (2.0-8.3); Neutrophils Percent Auto 80.6 % (45-73); PLT CLUMP 1; Red Blood Count 4.71 X10*6/uL (4.20-5.50); Red Cell Distribution Width 14.8 % (11.0-16.0); SCAN SMEAR FLAG 1
[2024-03-07 13:17] LABS: White Blood Count 8.4 X10*3/uL (4.8-10.8)
[2024-03-07 13:30] LABS: Alanine Aminotransferase 19 U/L (0-31); Albumin Level 4.3 g/dL (3.5-5.0); Alkaline Phosphatase 79 U/L (39-117); Anion Gap 12 (12-20); Aspartate Amino Transferase 21 U/L (5-31); Bilirubin Total 0.5 mg/dL (0.0-1.0); Blood Urea Nitrogen 13 mg/dL (9-16); Calcium 9.2 mg/dL (8.4-10.2); Carbon Dioxide 30 mmol/L (22-29); Chloride 106 mmol/L (96-108); Cholesterol 147 mg/dL (<200); Estimated Glomerular Filt Rate > 60; Glucose Random 93 mg/dL (60-115); HDL Cholesterol 46 mg/dL (>40); LDL Cholesterol Calculated 79 mg/dL (<100); Sodium 143 mmol/L (135-145); Total Protein 7.1 g/dL (6.5-8.0); Triglycerides 113 mg/dL (<150)
[2024-03-07 13:36] LABS: Free T4 (Free Thyroxine) 0.95 ng/dL (0.71-1.85); Thyroid Stimulating Hormone 2.61 uIU/mL (0.32-4.0)
[2024-03-07 13:44] LABS: Vitamin B12 763 pg/mL (200-900)
[2024-03-07 13:58] LABS: Platelet Count 181 X10*3/uL (160-400); SLIDE REVIEW VERIFIED
== END 2024-03-07 11:17 | disposition home or self-care (01) ==
LOC: HO.LAB 11:16
PROVIDERS: PCP Internal Medicine; Visit Provider Internal Medicine
DX: R73.02 Impaired glucose tolerance (oral) (principal); E78.00 Pure hypercholesterolemia, unspecified
CPT/HCPCS: 36415; 80053; 80061; 82607; 82746; 83036; 84439; 84443; 85025

== ENCOUNTER 2024-03-09 13:41 | Outpatient (AMB) | payer MEDICARE, SELFPAY ==
[2024-03-09 13:47] VITALS: BP 160/62; PULSE 80; O2SAT 96
--- NOTE | 2024-03-09 13:47 | MHC.PC.OV ---
Vital Signs 03/09/24 13:47 Height 5 ft 6 in Weight 186 lb BMI 30.0 BP 160/62 H Blood Pressure Location Lt brachial Position Sitting Pulse 80 Pulse Source Pulse Oximeter Pulse Oximetry (%) 96 Oxygen Delivery Method Room Air Intake Visit Reasons: 2 month f/u Allergies fish derived [fish] Allergy (Unknown, Verified 01/12/24 13:02) Anaphylaxis oxycodone [OXYCODONE] Allergy (Unknown, Verified 01/12/24 13:02) Nausea and Vomiting, upset stomache codeine [CODEINE] Adverse Reaction (Unknown, Verified 01/12/24 13:02) Nausea and Vomiting lactose [LACTOSE] Adverse Reaction (Unknown, Verified 01/12/24 13:02) Diarrhea dairy Allergy (Severe, Uncoded 01/12/24 13:02) Diarrhea Tobacco use date assessed: 07/08/23 Dental Screening Dental Screen Date: 07/08/23 HPI 2 month f/u HPI Details The patient is a 79-year-old female presenting with hypertension and chest pain. She has a history of high blood pressure, which has been stress-related and difficult to control at home, despite being on metoprolol 50 mg and losartan 100 mg. Recently, her blood pressure remains elevated despite adherence to medication, and there are concerns about her cardiac health given her familial history of heart disease. She reports experiencing episodes of chest pain that radiate to her arm, neck, and back, frequently accompanied by shortness of breath and lightheadedness. These symptoms primarily occur when standing and engaging in physical activities. The last stress test she underwent was in 2017 due to previous circulation issues. During a past test at [facility], she received nitrates and was found to have poor circulation in her legs. The patient also reports anxiety and emotional distress associated with her recently , contributing to her elevated blood pressure. Although she acknowledges the benefits of treating anxiety, she declines additional medication due to adverse perceptions related to her 's polypharmacy experiences. She also mentions having dense breast tissue identified in a recent mammogram, with a letter classification of C&D, and is considering further imaging with an ultrasound, particularly given her sister's history of breast cancer. [facility] Medical History (Updated 03/09/24 @ 14:13 by Elaine Rodríguez MD) Overweight (BMI 25.0-29.9) Medicare annual wellness visit, initial Contact dermatitis Night sweats Varicose veins of both lower extremities Hypertension Obesity (BMI 30-39.9) TIA (transient ischemic attack) GERD (gastroesophageal reflux disease) Vitamin D deficiency Hypercholesterolemia Vitamin B12 deficiency Family history of breast cancer Surgical History History of cataract surgery Closed right ankle fracture Family History Mother No problems noted. Father No problems noted. Social History Housing: House Alcohol intake: never Patient Tobacco Use Status: Never used Tobacco e-Cigarette/Vaping Use: Never Used Second Hand Smoke Exposure: No Current occupational status: retired Cognitive needs: No Hearing needs: No Vision needs: Yes Questionnaire Thrive Questionnaire Date Thrive assessed: 07/08/23 ALBERTINA-7 AMB Questionnaire ALBERTINA-7 Date ALBERTINA - 7 assessed: 07/08/23 Source: Developed by Drs. Christo Espinal, Eileen Edward, Murray Saul and colleagues, with an educational giselle from [employer]. Physical exam (Primary Care) Vital Signs: Last Vital Signs Pulse 80 03/09/24 13:47 BP 160/62 H 03/09/24 13:47 Pulse Ox 96 03/09/24 13:47 Oxygen Delivery Method Room Air 03/09/24 13:47 BMI result Body Mass Index 30.0 Tobacco/Smoking Status: Tobacco use Status Tobacco use date assessed 07/08/23 03/09/24 13:50 Patient Tobacco Use Status Never used Tobacco 03/09/24 13:50 e-Cigarette/Vaping Use Never Used 03/09/24 13:50 Thrive Assessment: Date of Thrive Assessment Date Thrive assessed 07/08/23 03/09/24 13:50 Const General: alert; No acute distress Eyes Conjunctivae: conjunctivae normal Resp Auscultation: clear to auscultation bilaterally Cardio Rate: regular rate Rhythm: regular rhythm GI Inspection: Yes normal to inspection Extrem General: Yes normal to inspection and No edema Coding Level of Care Code Est Pt Level 4 (05133) Complex EM visit Add On G2211 Diagnoses Obesity (BMI 30-39.9) E66.9 Impaired glucose tolerance R73.02 Essential hypertension I10 Hypertension type: essential hypertension Chest pain due to myocardial ischemia, unspecified ischemic chest pain type I25.9 Chest pain type: chest pain due to myocardial ischemia Ischemic chest pain type: unspecified angina pectoris type Generalized anxiety disorder F41.1 Assessment & Plan Assessment & Plan (1) Obesity (BMI 30-39.9): Code(s): E66.9 - Obesity, unspecified Category: Medical Plan: Diet and exercise (2) Impaired glucose tolerance: Code(s): R73.02 - Impaired glucose tolerance (oral) Category: Medical Plan: Decrease the amount of carbohydrate intake, pasta, bread, rice and potatoes are all sugar and that is aside from all the sweet stuff, remember that fruits are good but they are Sweet also. (3) Hypertension: Code(s): I10 - Essential (primary) hypertension Category: Medical Qualifiers: Hypertension type: essential hypertension Qualified Code(s): I10 - Essential (primary) hypertension Plan: Continue with blood pressure medication. Decrease salt intake and exercise presently on losartan 100 mg once a day and metoprolol 50 mg once a day (4) Chest pain: Code(s): R07.9 - Chest pain, unspecified Category: Medical Qualifiers: Chest pain type: chest pain due to myocardial ischemia Ischemic chest pain type: unspecified angina pectoris type Qualified Code(s): I25.9 - Chronic ischemic heart disease, unspecified (5) Generalized anxiety disorder: Code(s): F41.1 - Generalized anxiety disorder Category: Medical Plan: declined counselling and med Plan - Initiate nuclear stress test to assess potential coronary artery disease. - Increase metoprolol dosage to 100 mg daily, savings counselor patient to take two 50 mg tablets until prescription is completed, followed by one 100 mg tablet daily. - Continue losartan 100 mg daily as prescribed, and monitor blood pressure periodically. - Follow-up consultation in two months to evaluate blood pressure control and anxiety management, schedule with healthcare provider for blood pressure checks. - Discuss potential ultrasound follow-up for dense breast tissue if indicated by prior mammogram results. - Encourage regular monitoring of symptoms related to hypertension and angina, and seek medical attention if symptoms worsen. Orders: Orders Influenza [id number] Immunization Today Z23 - Encounter for immunization [place] lexiscan stress w lauro Today R07.9 - Chest pain, unspecified NM cardiolite stress test Today R07.9 - Chest pain, unspecified Medications: New Fluarix Triv [id number] (PF) (flu vacc [id number] 6mos up(PF)) 0.5 mL IM ONCE 0.5 mL 0RF NS Z23 - Encounter for immunization Changed From metoprolol succinate ER 50 mg PO DAILY 30 days 30 tabs 11RF I10 - Essential (primary) hypertension To metoprolol succinate ER 100 mg PO DAILY 30 days 30 tabs 11RF I10 - Essential (primary) hypertension
== END 2024-03-09 14:28 | disposition home or self-care (01) ==
PROVIDERS: PCP Internal Medicine; Visit Provider Internal Medicine
DX: R73.02 Impaired glucose tolerance (oral) (principal); E66.811 Obesity, class 1; Z68.30 Body mass index [BMI] 30.0-30.9, adult; I10 Essential (primary) hypertension; I25.9 Chronic ischemic heart disease, unspecified; F41.1 Generalized anxiety disorder

== ENCOUNTER → 2024-03-09 13:41 | Outpatient (BNVA) | payer MEDICARE, SELFPAY | PROVIDERS: PCP Internal Medicine; Visit Provider Internal Medicine | DX: E66.9 Obesity, unspecified (principal); R73.02 Impaired glucose tolerance (oral); I10 Essential (primary) hypertension; I25.9 Chronic ischemic heart disease, unspecified; F41.1 Generalized anxiety disorder | CPT/HCPCS: 99212 ==

== ENCOUNTER → 2024-04-15 09:46 | Outpatient (REF) | payer MEDICARE, SELFPAY ==
--- NOTE | ~2024-04-15 | NM_ITS ---
Lexiscan Myocardial perfusion study Indication: Chest pain to evaluate for myocardial ischemia Technique: The patient was brought in for a Lexiscan perfusion study on 04/15/2024 and was injected 0.4 mg of Lexiscan intravenously. Within a minute of this injection 30 mCi of sestamibi was given intravenously. Images were obtained using the SPECT gamma camera interlaced with the gating device. Images were obtained in supine position. Resting perfusion study was performed on 04/18/2024. Patient was administered 30 mCi of sestamibi intravenously at rest. Images were then obtained in supine position. Images obtained without without CT attenuation. Total DLP 181 mGy-cm. Images were processed with the software and compared side to side in short axis, horizontal long axis and vertical long axis views. Findings: The stress perfusion study showed nonattenuated images show severely reduced uptake in the distal lateral and mildly reduced uptake in the lateral wall of the LV myocardium. There is also moderately reduced uptake in the apex of the LV myocardium. Remainder of the LV myocardium is normally perfused. Septum has very intense uptake. Attenuated corrected images show normal uptake of radiotracer in all segments of the myocardium. The gated study shows normal LV systolic function with calculated LVEF of 65%. LV cavity is normal in size. The gated study shows normal systolic wall thickening and contraction of segments. Resting study shows both attenuated attenuated corrected images show normal uptake of radiotracer in all segments of the myocardium. Gating at rest reveals normal systolic wall motion with ejection fraction at 65%. The findings are consistent with likely normal myocardial perfusion. NM/NM cardiolite stress test Impression: 1. Myocardial perfusion imaging study shows likely normal myocardial perfusion 2. Gated LVEF is 65% 3. Transient ischemic dilatation not present Non diagnostic changes on EKG. Electronically signed by: Liu Pompa MD 04/18/2024 03:50 PM [facility]
--- NOTE | 2024-04-15 09:49 | CA_ITS ---
Acquisition Time: 2024-04-15 09:58:48 Total Exercise Time: 00:02:00 Test Indications: CP Medications: SEE EMAR /PRINT OUT Protocol: LEXISCAN Max HR: 109 BPM 77% of Pred: 141 BPM Max BP: 142/70 mmHG Max Work Load: 1.0 METS Pharmacologic stress test with Lexiscan, while pt kicked her legs in the chair, with reports of feeling warm and weird , with isolated PACs and PVCs, with normotensive response to injection. Nondiagnostic EKG for ischemia. In recovery, pt treated with IVP Aminophylline 75 mg to reverse Lexiscan. Pt feeling back to baseline. Nuclear images pending. Test reviewed with Dr. Pompa. Referred By: Elaine Rodríguez Electronically Signed By: Chavo Moore
== END ==
LOC: HO.CARD 09:46
PROVIDERS: PCP Internal Medicine; Visit Provider Internal Medicine
DX: R07.9 Chest pain, unspecified (principal)
CPT/HCPCS: 78452; 93017; A9500; J0280; J2785

== ENCOUNTER → 2024-04-15 09:49 | Outpatient (BNV) | payer MEDICARE, SELFPAY | PROVIDERS: PCP Internal Medicine | DX: I49.1 Atrial premature depolarization (principal); I49.3 Ventricular premature depolarization | CPT/HCPCS: 78452; 93016; 93018 ==

== ENCOUNTER 2024-05-11 13:55 | Outpatient (AMB) | payer MEDICARE, SELFPAY ==
--- NOTE | 2024-05-11 13:59 | A.OFFPC_ITS ---
Vital Signs 05/11/24 14:01 Height 5 ft 6 in Weight 187 lb BMI 30.2 BP 140/60 H Blood Pressure Location Lt brachial Position Sitting Pulse 78 Pulse Source Pulse Oximeter Temp 97.3 F Temp Source Temporal Artery Scan Pulse Oximetry (%) 96 Oxygen Delivery Method Room Air Intake Visit Reasons: annual exam Intake Note: Patient is here today for a lab results and HTN Exercise Physiology Professor Required: No Burial Vault Setter: Not Required per policy Accompanied by: Self / Same As Patient Allergies fish derived [fish] Allergy (Unknown, Verified 05/11/24 14:01) Anaphylaxis oxycodone [OXYCODONE] Allergy (Unknown, Verified 05/11/24 14:01) Nausea and Vomiting, upset stomache codeine [CODEINE] Adverse Reaction (Unknown, Verified 05/11/24 14:01) Nausea and Vomiting lactose [LACTOSE] Adverse Reaction (Unknown, Verified 05/11/24 14:01) Diarrhea dairy Allergy (Severe, Uncoded 05/11/24 14:01) Diarrhea Medication List - Last Reconciled 05/11/24 by Romi Flores PA-C aspirin (Adult Low Dose Aspirin) 81 mg PO DAILY atorvastatin 80 mg PO DAILY cholecalciferol (vitamin D3) 25 mcg PO DAILY cyanocobalamin (vitamin B-12) 1,000 mcg PO DAILY losartan 100 mg PO DAILY 30 days metoprolol succinate ER 100 mg PO DAILY 30 days omeprazole 20 mg PO DAILY Tobacco use date assessed: 05/11/24 Fall risk assessment: No Falls in past year Last assessed Fall Risk: 05/11/24 Dental Screening Dental Screen Date: 05/11/24 Did you have a dental visit in the last 12 months?: No Did you have a dental problem in the last 6 months where you did not have access to dental care?: No Was dental information given to patient?: No HPI annual exam HPI Details 79-year-old female with past medical his tory of impaired glucose tolerance, hypertension, hypercholesterolemia, GERD and generalized anxiety disorder last seen 02/[address] Rodríguez coming in for follow up. At her last visit metoprolol was increased to 100 mg daily and nuclear stress test was ordered. Stress test was performed 04/15/2024 which showed normal myocardial perfusion without ischemic dilation and ejection fraction of 65%. Patient tells us today she has been dealing with increased stress at home due to the loss of her and more recently her brother who last week. She has been having increased anxiety and depression. She also mentions having elevated blood pressures at home occasionally accompanied by a headache. Blood pressures at home are typically 140-150 systolic over 80s diastolic. She also mentions feeling more fatigued and her son telling her that she has pauses in her breathing at night. [facility] Medical History Overweight (BMI 25.0-29.9) Medicare annual wellness visit, initial Contact dermatitis Night sweats Varicose veins of both lower extremities Hypertension Obesity (BMI 30-39.9) TIA (transient ischemic attack) GERD (gastroesophageal reflux disease) Vitamin D deficiency Hypercholesterolemia Vitamin B12 deficiency Family history of breast cancer Surgical History History of cataract surgery Closed right ankle fracture Family History Mother No problems noted. Father No problems noted. Social History Housing: House Alcohol intake: never Patient Tobacco Use Status: Never used Tobacco e-Cigarette/Vaping Use: Never Used Second Hand Smoke Exposure: No service: No Current occupational status: retired Cognitive needs: No Hearing needs: No Vision needs: Yes (Glasses) Questionnaire PHQ-9 Over the last 2 weeks, how often have you been bothered by any of the following problems? 1. Little interest or pleasure in doing things: not at all 2. Feeling down, depressed, or hopeless: nearly every day Source: Developed by Drs. Christo Espinal, Eileen Edward, Murray Saul and colleagues, with an educational giselle from [employer]. Thrive Questionnaire Date Thrive assessed: 05/11/24 I am a: Patient What is your living situation today?: I have a steady place to live Within the past 12 months, did the food you bought not last and you didn't have the money to get more?: Never true Within the past 12 months, did you worry whether your food would run out before you got money to buy more?: Never true Do you have trouble paying for medicines?: No Do you have trouble getting transportation to medical appointments?: No Do you have trouble paying your heating and electricity bill?: No Do you have trouble taking care of your child, family member or friend?: No Do you have trouble with day-to-day activities such as bathing, preparing meals, shopping, managing finances, etc.?: No Are you currently unemployed and looking for a job?: No Are you interested in more education?: No Please select the resources that you would like help with: None THRIVE Score: 0 AUDIT C Alcohol Use Questionnaire (AUDIT-C) 1. How often do you have a drink containing alcohol?: Never Total Score: 0 ALBERTINA-7 AMB Questionnaire ALBERTINA-7 Date ALBERTINA - 7 assessed: 05/11/24 Feeling nervous, anxious, or on edge: 0 = Not at all Not being able to stop or control worryin = Not at all Worrying too much about different things: 0 = Not at all Trouble relaxin = Not at all Being so restless that it is hard to sit still: 0 = Not at all Becoming easily annoyed or irritable: 0 = Not at all Feeling afraid as if something awful might happen: 0 = Not at all Total ALBERTINA-7 score (0-4 normal; 5-9 mild; 10-14 moderate; 15-21 severe): 0 Source: Developed by Drs. Christo Espinal, Eileen Edward, Murray Saul and colleagues, with an educational giselle from [employer]. Review of Systems Const Denies body aches, Denies chills, Denies fever(s), Reports headache(s) and Denies poor appetite Eyes Reports no additional complaints ENT Denies dizziness and Reports headache(s) Card Denies chest pain, Denies irregular heart rhythm, Denies lightheadedness and Denies dyspnea Resp Denies cough and Denies dyspnea GI Reports no additional complaints Reports no additional complaints Musc Reports no additional complaints and Denies abnormal gait Skin/Breast Reports system reviewed and no additional complaints, except as documented Neuro Denies abnormal gait, Denies dizziness and Reports headache(s) Psych Reports no additional complaints Physical exam (Primary Care) Vital Signs: Last Vital Signs Temp 97.3 F 05/11/24 14:01 Oxygen Delivery Method Room Air 05/11/24 14:01 BMI result Body Mass Index 30.2 Tobacco/Smoking Status: Tobacco use Status Tobacco use date assessed 05/11/24 05/11/24 14:03 Patient Tobacco Use Status Never used Tobacco 05/11/24 14:03 e-Cigarette/Vaping Use Never Used 05/11/24 14:03 Thrive Assessment: Date of Thrive Assessment Date Thrive assessed 05/11/24 05/11/24 14:03 Const General: cooperative, healthy appearing, comfortable and no acute distress Orientation/consciousness: patient oriented x3 HENMT Head: Yes normocephalic Ears: hearing grossly normal bilaterally General nose exam: Normal external nose present Eyes General: appearance normal, both eyes and all related structures Conjunctivae: conjunctivae normal Neck Neck: Yes full ROM and Yes no lymphadenopathy Resp Effort & Inspection: normal respiratory effort Auscultation: clear to auscultation bilaterally, no crackles, no rales, no rhonchi and no wheezes Cardio Rate: regular rate Rhythm: regular rhythm Skin General skin exam: no rashes or lesions noted Neuro General: patient oriented x3 Gait exam (Neuro): Normal gait present Extrem General: Yes normal to inspection, Yes full ROM and No edema Psych Affect: normal affect Attitude: cooperative Insight: Good insight present (Psych) Judgement: Good judgement present (Psych) Coding Level of Care Code Est Pt Level 4 (34359) Diagnoses Impaired glucose tolerance R73.02 Generalized anxiety disorder F41.1 Essential hypertension I10 Hypertension type: essential hypertension Obesity (BMI 30-39.9) E66.9 Gastroesophageal reflux disease without esophagitis K21.9 Esophagitis presence: without esophagitis Hypercholesterolemia E78.00 Hypersomnolence G47.10 Assessment & Plan Assessment & Plan (1) Impaired glucose tolerance: Code(s): R73.02 - Impaired glucose tolerance (oral) Category: Medical Plan: Decrease the amount of carbohydrates such as pasta, bread, rice, and potatoes and limit the amount of sweets. Although fruits are generally healthy they should be eaten in moderation as they are still high in sugar. Last A1c normal (2) Generalized anxiety disorder: Code(s): F41.1 - Generalized anxiety disorder Category: Medical Plan: Patient mentions having increased stress and anxiety since the loss of her and more recently the loss of her brother. I strongly recommended a grief support group or therapy which was declined today. Declines medication or counseling referral. Patient denies any thoughts of self-harm at this time. (3) Hypertension: Code(s): I10 - Essential (primary) hypertension Category: Medical Qualifiers: Hypertension type: essential hypertension Qualified Code(s): I10 - Essential (primary) hypertension Plan: Continue on current blood pressure medication. Avoid salt intake and encourage healthy diet and regular exercise. Blood pressure elevated in the office today and blood pressure values at home elevated and occasionally symptomatic. I discussed the importance of getting blood pressure under control. She is declining it additional increases in her medication and/or adding additional medication for better management of the blood pressure. I did explain the risks persistent elevated blood pressure and patient understands continues to decline further medical management. Plan to follow up in 2 months. (4) Obesity (BMI 30-39.9): Code(s): E66.9 - Obesity, unspecified Category: Medical Plan: Healthy diet and regular exercise is encouraged. (5) GERD (gastroesophageal reflux disease): Comment: Gastritis and esophagitis Code(s): K21.9 - Gastro-esophageal reflux disease without esophagitis Category: Medical Qualifiers: Esophagitis presence: without esophagitis Qualified Code(s): K21.9 - Gastro-esophageal reflux disease without esophagitis Plan: Avoid trigger foods such as citrus, tomato products, soda, caffeine, spicy foods and other foods that may be irritating to your stomach. Avoid laying flat 3-4 hours after eating and elevate the head of the bed 30 degrees to prevent acid from moving into the esophagus. Continue on omeprazole 20 (6) Hypercholesterolemia: Code(s): E78.00 - Pure hypercholesterolemia, unspecified Category: Medical Plan: Avoid foods that are high in cholesterol such as red meat, fried foods, eggs and baked goods. Triglyceride goal of less than 150 and LDL goal of less than 130. Continue on atorvastatin 80 (7) Hypersomnolence: Code(s): G47.10 - Hypersomnia, unspecified Category: Medical Plan: Patient complaining of hypersomnolence and pauses in breathing while sleeping. I recommended a sleep study which was declined by the patient. Plan Patient was informed and verbally consented to the use of an ambient scribe for clinic note documentation during this visit. This note was constructed using voice recognition software. While every effort has been made to ensure accuracy and coning machine operator, still areas may have been included sometimes these areas may affect the content or meeting of the given symptoms. Total time spent caring for the patient today was 30 minutes. This includes time spent before the visit reviewing the chart, time spent during the visit, and time spent after the visit and documentation.
[2024-05-11 14:01] VITALS: BP 140/60; PULSE 78; TEMP 36.3; O2SAT 96; BMI 30.2
== END 2024-05-11 14:35 | disposition home or self-care (01) ==
PROVIDERS: PCP Internal Medicine
DX: R73.02 Impaired glucose tolerance (oral) (principal); F41.1 Generalized anxiety disorder; E66.9 Obesity, unspecified; Z68.30 Body mass index [BMI] 30.0-30.9, adult; I10 Essential (primary) hypertension; K21.9 Gastro-esophageal reflux disease without esophagitis; E78.00 Pure hypercholesterolemia, unspecified; G47.10 Hypersomnia, unspecified

== ENCOUNTER → 2024-05-11 13:55 | Outpatient (BNVA) | payer MEDICARE, SELFPAY | PROVIDERS: PCP Internal Medicine | DX: R73.02 Impaired glucose tolerance (oral) (principal); F41.1 Generalized anxiety disorder; I10 Essential (primary) hypertension; E66.9 Obesity, unspecified; K21.9 Gastro-esophageal reflux disease without esophagitis; E78.00 Pure hypercholesterolemia, unspecified; G47.10 Hypersomnia, unspecified | CPT/HCPCS: 99212 ==

== ENCOUNTER 2024-10-12 08:51 | Outpatient (AMB) | payer MEDICARE, SELFPAY ==
[2024-10-12 08:53] VITALS: BP 138/82; PULSE 71; RESP 18; TEMP 36.1; O2SAT 96; BMI 30.4
--- NOTE | 2024-10-12 08:53 | A.OFFPC_ITS ---
Vital Signs 10/12/24 08:53 Height 5 ft 6 in Weight 188 lb 4 oz BMI 30.4 BP 138/82 Blood Pressure Location Lt brachial Position Sitting Respiration 18 Pulse 71 Pulse Source Pulse Oximeter Temp 97.0 F Temp Source Temporal Artery Scan Pulse Oximetry (%) 96 Oxygen Delivery Method Room Air Intake Visit Reasons: 3 Month F/U Allergies fish derived (fish) Allergy (Unknown, Verified 10/12/24 08:56) Anaphylaxis oxycodone (OXYCODONE) Allergy (Unknown, Verified 10/12/24 08:56) Nausea and Vomiting, upset stomache codeine (CODEINE) Adverse Reaction (Unknown, Verified 10/12/24 08:56) Nausea and Vomiting lactose (LACTOSE) Adverse Reaction (Unknown, Verified 10/12/24 08:56) Diarrhea dairy Allergy (Severe, Uncoded 10/12/24 08:56) Diarrhea Tobacco use date assessed: 10/12/24 Fall risk assessment: No Falls in past year Last assessed Fall Risk: 10/12/24 Dental Screening Dental Screen Date: 10/12/24 Did you have a dental visit in the last 12 months?: No Did you have a dental problem in the last 6 months where you did not have access to dental care?: No Was dental information given to patient?: Patient declined [facility] Medical History Overweight (BMI 25.0-29.9) Medicare annual wellness visit, initial Contact dermatitis Night sweats Varicose veins of both lower extremities Hypertension Obesity (BMI 30-39.9) TIA (transient ischemic attack) GERD (gastroesophageal reflux disease) Vitamin D deficiency Hypercholesterolemia Vitamin B12 deficiency Family history of breast cancer Surgical History History of cataract surgery Closed right ankle fracture Family History Mother No problems noted. Father No problems noted. Social History Housing: House Alcohol intake: never Patient Tobacco Use Status: Never used Tobacco e-Cigarette/Vaping Use: Never Used Second Hand Smoke Exposure: No service: No Current occupational status: retired Cognitive needs: No Hearing needs: No Vision needs: Yes (Glasses) Questionnaire PHQ-9 Over the last 2 weeks, how often have you been bothered by any of the following problems? 1. Little interest or pleasure in doing things: not at all 2. Feeling down, depressed, or hopeless: not at all 3. Trouble falling or staying asleep, or sleeping too much: not at all 4. Feeling tired or having little energy: several days 5. Poor appetite or overeating: several days 6. Feeling bad about yourself - or that you are a failure or have let yourself or your family down: not at all 7. Trouble concentrating on things, such as reading the newspaper or watching television: not at all 8. Moving or speaking so slowly that other people could have noticed. Or the opposite - being so fidgety or restless that you have been moving around a lot more than usual: not at all 9. Thoughts that you would be better off or of hurting yourself in some way: not at all Total score: 2 Depression Screening Interpretation: Negative Depression Screening Done: Yes Source: Developed by Drs. Christo Espinal, Eileen Edward, Murray Saul and colleagues, with an educational giselle from [employer]. Thrive Questionnaire Date Thrive assessed: 10/12/24 I am a: Patient What is your living situation today?: I have a steady place to live Within the past 12 months, did the food you bought not last and you didn't have the money to get more?: Never true Within the past 12 months, did you worry whether your food would run out before you got money to buy more?: Never true Do you have trouble paying for medicines?: No Do you have trouble getting transportation to medical appointments?: No Do you have trouble paying your heating and electricity bill?: No Do you have trouble taking care of your child, family member or friend?: No Do you have trouble with day-to-day activities such as bathing, preparing meals, shopping, managing finances, etc.?: No Are you currently unemployed and looking for a job?: No Are you interested in more education?: No Please select the resources that you would like help with: None THRIVE Score: 0 AUDIT C Alcohol Use Questionnaire (AUDIT-C) 1. How often do you have a drink containing alcohol?: Never 3. How often do you have six or more drinks on one occasion?: Never Total Score: 0 ALBERTINA-7 AMB Questionnaire ALBERTINA-7 Date ALBERTINA - 7 assessed: 10/12/24 Feeling nervous, anxious, or on edge: 0 = Not at all Not being able to stop or control worryin = Not at all Worrying too much about different things: 0 = Not at all Trouble relaxin = Not at all Being so restless that it is hard to sit still: 0 = Not at all Becoming easily annoyed or irritable: 0 = Not at all Feeling afraid as if something awful might happen: 0 = Not at all Total ALBERTINA-7 score (0-4 normal; 5-9 mild; 10-14 moderate; 15-21 severe): 0 Source: Developed by Drs. Christo Espinal, Eileen Edward, Murray Saul and colleagues, with an educational giselle from [employer]. Physical exam (Primary Care) Vital Signs: Last Vital Signs Temp 97.0 F 10/12/24 08:53 Pulse 71 10/12/24 08:53 Resp 18 10/12/24 08:53 BP 138/82 10/12/24 08:53 Pulse Ox 96 10/12/24 08:53 Oxygen Delivery Method Room Air 10/12/24 08:53 BMI result Body Mass Index 30.4 Tobacco/Smoking Status: Tobacco use Status Tobacco use date assessed 10/12/24 10/12/24 08:58 Patient Tobacco Use Status Never used Tobacco 10/12/24 08:53 e-Cigarette/Vaping Use Never Used 10/12/24 08:53 PHQ-9: PHQ-9 Score PHQ-9: Total score 2 10/12/24 09:11 Depression Screening Interpretation: Negative Thrive Assessment: Date of Thrive Assessment Date Thrive assessed 10/12/24 10/12/24 08:58 Const General: alert; No acute distress Eyes Conjunctivae: conjunctivae normal Resp Auscultation: clear to auscultation bilaterally Cardio Rate: regular rate Rhythm: regular rhythm GI Inspection: Yes normal to inspection Extrem General: Yes normal to inspection and No edema Coding Level of Care Code Est Pt Level 4 (71526) Complex EM visit Add On G2211 Diagnoses Essential hypertension I10 Hypertension type: essential hypertension Hypercholesterolemia E78.00 Impaired glucose tolerance R73.02 Obesity (BMI 30-39.9) E66.9 Gastroesophageal reflux disease without esophagitis K21.9 Esophagitis presence: without esophagitis Assessment & Plan Assessment & Plan (1) Hypertension: Code(s): I10 - Essential (primary) hypertension Category: Medical Qualifiers: Hypertension type: essential hypertension Qualified Code(s): I10 - Essential (primary) hypertension Plan: Continue with blood pressure medication. Decrease salt intake and exercise patient is on losartan 100 mg once a day metoprolol 100 mg once a day (2) Hypercholesterolemia: Code(s): E78.00 - Pure hypercholesterolemia, unspecified Category: Medical Plan: Avoid fried foods, chicken skin, eggs, butter margarine, pastries and meat. Be it pork or beef they have a lot of cholesterol on atorvastatin 80 mg once a day February last blood work (3) Impaired glucose tolerance: Code(s): R73.02 - Impaired glucose tolerance (oral) Category: Medical Plan: Decrease the amount of carbohydrate intake, pasta, bread, rice and potatoes are all sugar and that is aside from all the sweet stuff, remember that fruits are good but they are Sweet also. (4) Obesity (BMI 30-39.9): Code(s): E66.9 - Obesity, unspecified Category: Medical Plan: Diet and exercise (5) GERD (gastroesophageal reflux disease): Comment: Gastritis and esophagitis Code(s): K21.9 - Gastro-esophageal reflux disease without esophagitis Category: Medical Qualifiers: Esophagitis presence: without esophagitis Qualified Code(s): K21.9 - Gastro-esophageal reflux disease without esophagitis Plan: Avoid the foods that causes that usually spicy foods, tomato products, juices, coffee, soda and foods that your sensitive to. After eating do not lie down, allow 3-4 hours before in lie down. And keep the head of bed above 30 degrees to avoid the acid from going up. Plan History of Present Illness The patient is a 79-year-old female presenting for a follow-up visit. She has a history of hypercholesterolemia, gastroesophageal reflux disease (GERD), hypertension, generalized anxiety disorder, and impaired glucose tolerance. Her last bone density test was conducted in 2015, and it is recommended to have another one. The patient's mammogram was completed in December 2023 and is up to date. She has refused a colonoscopy. Blood work done in February showed normal blood count and electrolytes, with good renal function. Her blood sugar was mildly elevated, with a hemoglobin A1c of 5.8%. Cholesterol levels were reported as good, and B12, folic acid, and thyroid function were normal. A stress test conducted in March 2024 showed normal microalbumin perfusion and an ejection fraction of 65%. The patient is currently on losartan 100 mg once daily and metoprolol 100 mg once daily for hypertension. She is also taking atorvastatin 80 mg once daily for hypercholesterolemia. For impaired glucose tolerance, the plan includes diet and exercise. She is prescribed omeprazole for GERD, with a year's supply available. Health Maintenance - Bone density screening recommended - Mammogram up to date - Colonoscopy refused Social History - Family status: Recently , experiencing emotional difficulty - Exercise: Participates in activities at [employer], including running [employer] - Hydration: Drinks water regularly, especially during heat Review of Systems - Cardiovascular: Denies chest pain, reports normal stress test results - Endocrine: Reports mildly elevated blood sugar, hemoglobin A1c of 5.8% - Musculoskeletal: Reports swollen legs - Psychological: Reports emotional difficulty due to recent bereavement Physical Exam Results - Labs: Normal blood count, normal electrolytes, good renal function, mildly elevated blood sugar, hemoglobin A1c of 5.8% - Tests: Normal stress test with microalbumin perfusion and ejection fraction of 65% Plan The patient will continue on her current medications, including losartan and metoprolol for hypertension, and atorvastatin for hypercholesterolemia. For impaired glucose tolerance, the plan includes maintaining a diet and exercise regimen to manage blood sugar levels. A follow-up blood test is recommended to monitor her blood sugar levels, with a focus on fasting blood work. Preventative care measures include scheduling a bone density test, as the last one was conducted in 2015, and ensuring mammograms remain up to date. The patient has refused a colonoscopy, and this decision is noted in her preventative care plan. The patient is advised to continue her current regimen of omeprazole for GERD, with a year's supply available. She is encouraged to maintain hydration, especially during periods of heat, and to stay active through participation in community activities. Patient was informed and verbally consented to the use of an ambient scribe for clinic note documentation during this visit. Discussion Notes During the visit, I discussed the importance of maintaining her current medication regimen for hypertension and hypercholesterolemia. We reviewed her blood sugar levels and emphasized the need for diet and exercise to manage impaired glucose tolerance. I recommended a follow-up blood test to monitor her blood sugar, focusing on fasting blood work. Preventative care was addressed, including the need for a bone density test and the importance of keeping mammograms up to date. The patient has chosen not to undergo a colonoscopy, and this was acknowledged in our discussion. I advised her to continue taking omeprazole for GERD and to ensure adequate hydration, particularly during hot weather. Patient Instructions - Continue taking losartan, metoprolol, and atorvastatin as prescribed. - Follow a diet and exercise plan to manage blood sugar levels. - Schedule a follow-up blood test for fasting blood sugar. - Arrange for a bone density test and keep mammograms up to date. - Continue taking omeprazole for GERD. - Stay hydrated, especially during hot weather, and remain active in community activities. Orders: Orders Free T4 (Free Thyroxine) Today R73.02 - Impaired glucose tolerance (oral) Comprehensive Met. Panel Today R73.02 - Impaired glucose tolerance (oral) Hemoglobin A1c Today R73.02 - Impaired glucose tolerance (oral) Thyroid Stimulating Hormone Today R73.02 - Impaired glucose tolerance (oral) Complete Blood Count Auto Diff Today R73.02 - Impaired glucose tolerance (oral) Lipid Panel Today E78.00 - Pure hypercholesterolemia, unspecified, R73.02 - Impaired glucose tolerance (oral) Medications: Refilled omeprazole 20 mg PO DAILY 30 caps 12RF B35.4 - Tinea corporis
== END 2024-10-12 09:24 | disposition home or self-care (01) ==
LOC: HO.HMCH 08:51
PROVIDERS: PCP Internal Medicine; Visit Provider Internal Medicine
DX: I10 Essential (primary) hypertension (principal); E66.9 Obesity, unspecified; Z68.30 Body mass index [BMI] 30.0-30.9, adult; E78.00 Pure hypercholesterolemia, unspecified; R73.02 Impaired glucose tolerance (oral); K21.9 Gastro-esophageal reflux disease without esophagitis

== ENCOUNTER → 2024-10-12 08:51 | Outpatient (BNVA) | payer MEDICARE, SELFPAY | PROVIDERS: PCP Internal Medicine; Visit Provider Internal Medicine | DX: I10 Essential (primary) hypertension (principal); E78.00 Pure hypercholesterolemia, unspecified; R73.02 Impaired glucose tolerance (oral); E66.9 Obesity, unspecified; K21.9 Gastro-esophageal reflux disease without esophagitis; F41.1 Generalized anxiety disorder | CPT/HCPCS: 96127; 99212 ==

== ENCOUNTER 2025-01-23 11:18 | Outpatient (REF) | payer MEDICARE, SELFPAY | END 2025-01-23 11:19 | disposition home or self-care (01) | LOC: HO.MAMMO 11:18 | PROVIDERS: PCP Internal Medicine; Visit Provider Internal Medicine | DX: Z12.31 Encounter for screening mammogram for malignant neoplasm of breast (principal) | CPT/HCPCS: 77063; 77067 ==

== ENCOUNTER → 2025-01-23 11:21 | Outpatient (BNV) | payer MEDICARE, SELFPAY | PROVIDERS: PCP Internal Medicine; Visit Provider Internal Medicine | DX: Z12.31 Encounter for screening mammogram for malignant neoplasm of breast (principal) | CPT/HCPCS: 77063; 77067 ==

== ENCOUNTER 2025-01-30 14:29 | Outpatient (REF) | payer MEDICARE, SELFPAY ==
[2025-01-30 15:06] LABS: MANUAL DIFF FLAG NO
[2025-01-30 15:26] LABS: Hematocrit 40.2 % (37.0-47.0); Hemoglobin 12.5 g/dl (12.0-16.0); Imm Gran Abs Auto 0.06 X10*3/uL (0.00-0.03); Imm Gran Pct Auto 0.5 % (0.0-0.4); Lymphocytes Absolute Auto 1.4 X10*3/uL (1.2-4.9); Mean Corpuscular HGB Conc 31.1 g/dl (31.0-35.0); Mean Corpuscular Hemoglobin 25.9 pg (27.0-33.0); Mean Corpuscular Volume 83.2 fL (80.0-98.0); NRBC Abs Auto 0.000 X10*3/uL (0.0-0.012); NRBC Pct Auto 0.0 /100WBC (0.0-0.2); Platelet Count 188 X10*3/uL (160-400); Red Blood Count 4.83 X10*6/uL (4.20-5.50); White Blood Count 11.5 X10*3/uL (4.8-10.8)
[2025-01-30 16:38] LABS: Alanine Aminotransferase 19 U/L (0-31); Albumin Level 4.6 g/dL (3.5-5.0); Alkaline Phosphatase 84 U/L (39-117); Anion Gap 13 (12-20); Aspartate Amino Transferase 22 U/L (5-31); Blood Urea Nitrogen 15 mg/dL (9-16); Calcium 9.5 mg/dL (8.4-10.2); Carbon Dioxide 28 mmol/L (22-29); Chloride 106 mmol/L (96-108); Cholesterol 176 mg/dL (<200); Estimated Glomerular Filt Rate > 60; HDL Cholesterol 47 mg/dL (>40); Potassium 4.4 mmol/L (3.3-5.1); Sodium 143 mmol/L (135-145); Total Protein 7.2 g/dL (6.5-8.0); Triglycerides 136 mg/dL (<150)
[2025-01-30 17:03] LABS: Free T4 (Free Thyroxine) 0.91 ng/dL (0.71-1.85); Thyroid Stimulating Hormone 2.68 uIU/mL (0.32-4.0)
== END 2025-01-30 14:30 | disposition home or self-care (01) ==
LOC: HO.LAB 14:29
PROVIDERS: PCP Internal Medicine; Visit Provider Internal Medicine
DX: R73.02 Impaired glucose tolerance (oral) (principal); E78.00 Pure hypercholesterolemia, unspecified
CPT/HCPCS: 36415; 80053; 80061; 83036; 84439; 84443; 85025

== ENCOUNTER 2025-02-02 09:44 | Outpatient (AMB) | payer MEDICARE, SELFPAY ==
[2025-02-02 09:55] VITALS: BP 148/98; PULSE 78; O2SAT 98; BMI 29.9
--- NOTE | 2025-02-02 09:55 | MHC.PC.OV ---
Vital Signs 02/02/25 09:55 02/02/25 10:14 Height 5 ft 6 in Weight 185 lb BMI 29.9 BP 148/98 H 130/70 Blood Pressure Location Lt brachial Lt brachial Position Sitting Sitting Pulse 78 Pulse Source Pulse Oximeter Pulse Oximetry (%) 98 Oxygen Delivery Method Room Air Intake Visit Reasons: HTN , Chol, IGT Allergies fish derived (fish) Allergy (Unknown, Verified 02/02/25 09:55) Anaphylaxis oxycodone (OXYCODONE) Allergy (Unknown, Verified 02/02/25 09:55) Nausea and Vomiting, upset stomache codeine (CODEINE) Adverse Reaction (Unknown, Verified 02/02/25 09:55) Nausea and Vomiting lactose (LACTOSE) Adverse Reaction (Unknown, Verified 02/02/25 09:55) Diarrhea dairy Allergy (Severe, Uncoded 02/02/25 09:55) Diarrhea Medication List - Last Reconciled 02/02/25 by Elaine Rodríguez MD aspirin (Adult Low Dose Aspirin) 81 mg PO DAILY atorvastatin 80 mg PO DAILY cholecalciferol (vitamin D3) 25 mcg PO DAILY clotrimazole 1% 1 appl topical BID 4 weeks cyanocobalamin (vitamin B-12) 1,000 mcg PO DAILY losartan 100 mg PO DAILY 30 days metoprolol succinate ER 100 mg PO DAILY 30 days omeprazole 20 mg PO DAILY Tobacco use date assessed: 10/12/24 Fall risk assessment: No Falls in past year Last assessed Fall Risk: 02/02/25 Dental Screening Dental Screen Date: 10/12/24 [facility] Medical History (Updated 02/02/25 @ 10:12 by Elaine Rodríguez MD) Overweight (BMI 25.0-29.9) Medicare annual wellness visit, initial Contact dermatitis Night sweats Varicose veins of both lower extremities Hypertension Obesity (BMI 30-39.9) TIA (transient ischemic attack) GERD (gastroesophageal reflux disease) Vitamin D deficiency Hypercholesterolemia Vitamin B12 deficiency Family history of breast cancer Surgical History History of cataract surgery Closed right ankle fracture Family History Mother No problems noted. Father No problems noted. Social History Housing: House Alcohol intake: never Patient Tobacco Use Status: Never used Tobacco Tobacco use type: Cigarette e-Cigarette/Vaping Use: Never Used Second Hand Smoke Exposure: No service: No Current occupational status: retired Cognitive needs: No Hearing needs: No Vision needs: Yes (Glasses) Questionnaire PHQ-9 Over the last 2 weeks, how often have you been bothered by any of the following problems? 1. Little interest or pleasure in doing things: not at all 2. Feeling down, depressed, or hopeless: not at all 3. Trouble falling or staying asleep, or sleeping too much: not at all 4. Feeling tired or having little energy: several days 5. Poor appetite or overeating: several days 6. Feeling bad about yourself - or that you are a failure or have let yourself or your family down: not at all 7. Trouble concentrating on things, such as reading the newspaper or watching television: not at all 8. Moving or speaking so slowly that other people could have noticed. Or the opposite - being so fidgety or restless that you have been moving around a lot more than usual: not at all 9. Thoughts that you would be better off or of hurting yourself in some way: not at all Total score: 2 Depression Screening Interpretation: Positive Depression Screening Done: Yes Source: Developed by Drs. Christo Espinal, Murray Malhotra and colleagues, with an educational giselle from [employer]. Thrive Questionnaire Date Thrive assessed: 10/12/24 ALBERTINA-7 AMB Questionnaire ALBERTINA-7 Date ALBERTINA - 7 assessed: 10/12/24 Source: Developed by Drs. Christo Espinal, Murray Malhotra and colleagues, with an educational giselle from [employer]. Physical exam (Primary Care) Vital Signs: Last Vital Signs Pulse 78 02/02/25 09:55 BP 148/98 H 02/02/25 09:55 Pulse Ox 98 02/02/25 09:55 Oxygen Delivery Method Room Air 02/02/25 09:55 BMI result Body Mass Index 29.9 Tobacco/Smoking Status: Tobacco use Status Tobacco use date assessed 10/12/24 02/02/25 10:02 Patient Tobacco Use Status Never used Tobacco 02/02/25 10:02 Tobacco use type Cigarette 02/02/25 10:02 e-Cigarette/Vaping Use Never Used 02/02/25 10:02 PHQ-9: PHQ-9 Score PHQ-9: Total score 2 02/02/25 10:02 Depression Screening Interpretation: Positive Thrive Assessment: Date of Thrive Assessment Date Thrive assessed 10/12/24 02/02/25 10:02 Const General: alert; No acute distress Eyes Conjunctivae: conjunctivae normal Resp Auscultation: clear to auscultation bilaterally Cardio Rate: regular rate Rhythm: regular rhythm GI Inspection: Yes normal to inspection Extrem General: Yes normal to inspection and No edema Coding Level of Care Code Est Pt Level 4 (83589) Complex EM visit Add On G2211 Diagnoses Essential hypertension I10 Hypertension type: essential hypertension Hypercholesterolemia E78.00 Impaired glucose tolerance R73.02 Generalized anxiety disorder F41.1 Gastroesophageal reflux disease without esophagitis K21.9 Esophagitis presence: without esophagitis Overweight (BMI 25.0-29.9) E66.3 Assessment & Plan Assessment & Plan (1) Hypertension: Code(s): I10 - Essential (primary) hypertension Category: Medical Qualifiers: Hypertension type: essential hypertension Qualified Code(s): I10 - Essential (primary) hypertension Plan: Continue with blood pressure medication. Decrease salt intake and exercise patient is on losartan 100 mg once a day metoprolol 100 mg once a day (2) Hypercholesterolemia: Code(s): E78.00 - Pure hypercholesterolemia, unspecified Category: Medical Plan: Avoid fried foods, chicken skin, eggs, butter margarine, pastries and meat. Be it pork or beef they have a lot of cholesterol LDL goal of less than 130 and triglyceride of less than 150 on atorvastatin 80 mg once a day (3) Impaired glucose tolerance: Code(s): R73.02 - Impaired glucose tolerance (oral) Category: Medical Plan: Decrease the amount of carbohydrate intake, pasta, bread, rice and potatoes are all sugar and that is aside from all the sweet stuff, remember that fruits are good but they are Sweet also. (4) Generalized anxiety disorder: Code(s): F41.1 - Generalized anxiety disorder Category: Medical Plan: Stable (5) GERD (gastroesophageal reflux disease): Comment: Gastritis and esophagitis Code(s): K21.9 - Gastro-esophageal reflux disease without esophagitis Category: Medical Qualifiers: Esophagitis presence: without esophagitis Qualified Code(s): K21.9 - Gastro-esophageal reflux disease without esophagitis Plan: Avoid the foods that causes that usually spicy foods, tomato products, juices, coffee, soda and foods that your sensitive to. After eating do not lie down, allow 3-4 hours before in lie down. And keep the head of bed above 30 degrees to avoid the acid from going up. (6) Overweight (BMI 25.0-29.9): Code(s): E66.3 - Overweight Category: Medical Plan: Continue keeping active Plan History of Present Illness The patient is an 80-year-old overweight female presenting for a follow-up visit and review of lab results. She has a history of hypercholesterolemia, hypertension, generalized anxiety disorder, and GERD. She was last seen in September 2024 and has experienced a 3-pound weight loss, which she attributes to eating fewer snacks. Recent blood work from January 30 showed a normal blood count with no anemia, a normal platelet count, and mild leukocytosis. Her electrolytes, renal function, liver function, and thyroid studies were normal. She has a hemoglobin A1c of 5.9%, indicating prediabetes, despite reporting that she is not a sweet eater. Her LDL cholesterol was 102 mg/dL. Regarding health maintenance, the patient's mammogram is up to date, but she has declined colonoscopy and bone density screenings. She deferred her flu shot during the visit, citing a past experience of getting sick from it, and also declined the shingles vaccine. The patient reports feeling depressed and not sleeping well, which she relates to grieving the loss of her over a year ago. She declined an offer for counseling. Health Maintenance The patient is up to date with her mammogram but has declined colonoscopy and bone density screening. She deferred the influenza vaccine due to a prior reaction and declined the shingles vaccine despite counseling on its benefits. A follow-up appointment is scheduled for three months. Social History - Grief and Social Support: The patient reports significant depression and stress related to grieving the loss of her over a year ago and other recent bereavements in her social solomon. - She declined counseling services. - Living Situation: The patient lives with and provides some level of support for another individual, expressing concern for his future. - Nutritional Intake: Reports a decrease in snacking, which she links to recent weight loss. - She states she is not a sweet eater. - Sleep: Reports she does not sleep well, attributing it to an active mind and grief. Review of Systems - Constitutional: Reports feeling unwell ( not up to par ) and a 3-pound weight loss. - Psychiatric: Reports depression, stress, and insomnia related to grief. - Gastrointestinal: Reports good bowel movements. - Genitourinary: Reports urination is fine. Physical Exam - Vitals: Blood pressure is 130/70 mmHg. - Constitutional: A 3-pound weight loss was noted. Results - Labs (January 30): - Complete Blood Count: Normal with no anemia; mild leukocytosis was noted. - Platelet Count: Normal. - Comprehensive Metabolic Panel: Electrolytes and renal function are good. - Fasting blood sugar is normal. - Liver function tests are good. - Hemoglobin A1c: 5.9%. - Lipid Panel: LDL cholesterol is 102 mg/dL. - Thyroid-Stimulating Hormone: Normal. Plan Patient was informed and verbally consented to the use of an ambient scribe for clinic note documentation during this visit. 1. Hypertension The patient's blood pressure is well-controlled at 130/70 mmHg on her current regimen. She will continue losartan 100 mg once a day and metoprolol 100 mg once a day. A refill for metoprolol was requested and sent to her pharmacy. 2. Hypercholesterolemia The patient's LDL cholesterol is 102 mg/dL, which is below the goal of less than 130 mg/dL. She will continue taking atorvastatin 80 mg once a day. 3. Prediabetes The patient's hemoglobin A1c is 5.9%, which falls in the prediabetic range. The condition is stable and does not require medication at this time. The plan is to continue monitoring her blood sugar, and she was counseled to be careful with carbohydrate intake, particularly pasta, bread, rice, and potatoes. 4. Depression The patient reports significant feelings of depression and insomnia related to grief. Counseling was offered as a supportive measure, but the patient declined at this time. Will continue to monitor her mood and symptoms at subsequent visits. Discussion Notes I reviewed the patient's recent lab results with her, highlighting that most were normal, including her kidney function, liver function, and cholesterol, which had an LDL of 102 mg/dL. I explained that her hemoglobin A1c of 5.9% is in the prediabetic range and counseled her to be cautious with carbohydrates like pasta, bread, rice, and potatoes. I informed her of a mild elevation in her white blood cell count, which is not concerning but will be monitored. We discussed preventative care; she has declined colonoscopy, bone density scan, and the shingles vaccine. She deferred her flu shot today due to a prior reaction, but I encouraged her to get it at a pharmacy when she feels better. The patient shared feelings of depression and grief, and I offered counseling, which she declined. I sent a refill for her metoprolol to her pharmacy. We agreed to a follow-up appointment in three months, with the understanding she can come in sooner if needed. Patient Instructions - Continue taking your medications for blood pressure and cholesterol as prescribed. - A refill for your Metoprolol has been sent to [facility]. - Be mindful of the carbohydrates you eat, such as pasta, bread, rice, and potatoes, to help keep your blood sugar in a healthy range. - Please get your flu shot at a pharmacy when you feel up to it. - Continue to stay active. - Your next follow-up appointment is in three months, but please call the office to be seen sooner if you feel unwell. Medications: Refilled metoprolol succinate ER 100 mg PO DAILY 30 tabs 11RF 30 days I10 - Essential (primary) hypertension
[2025-02-02 10:14] VITALS: BP 130/70
== END 2025-02-02 10:30 | disposition home or self-care (01) ==
LOC: HO.HMCH 09:45
PROVIDERS: PCP Internal Medicine; Visit Provider Internal Medicine
DX: I10 Essential (primary) hypertension (principal); E78.00 Pure hypercholesterolemia, unspecified; R73.02 Impaired glucose tolerance (oral); F41.1 Generalized anxiety disorder; K21.9 Gastro-esophageal reflux disease without esophagitis; E66.3 Overweight

== ENCOUNTER → 2025-02-02 09:44 | Outpatient (BNVA) | payer MEDICARE, SELFPAY | PROVIDERS: PCP Internal Medicine; Visit Provider Internal Medicine | DX: I10 Essential (primary) hypertension (principal); E78.00 Pure hypercholesterolemia, unspecified; R73.02 Impaired glucose tolerance (oral); F41.1 Generalized anxiety disorder; K21.9 Gastro-esophageal reflux disease without esophagitis; E66.3 Overweight; F32.A Depression, unspecified; Z68.29 Body mass index [BMI] 29.0-29.9, adult | CPT/HCPCS: 96127; 99212 ==